=== PATIENT | female | born 1955 | race American Indian/Alaskan Native ===

== ENCOUNTER 2020-06-16 10:24 | Outpatient (CLI) | payer BC ==
[2020-06-16 11:09] LABS: ABG Base Excess 4.1 mmol/L (-2.0-3.0); ABG HCO3 28.9 mmol/L (20.0-26.0); ABG Methemoglobin 0.5 % (0.0-1.5); ABG Oxygen Saturation 96.6 % (95.0-99.0); ABG PH 7.436 pH Units (7.350-7.450)
[2020-06-16 11:13] LABS: Blood Urea Nitrogen 14 mg/dL (7-17); Calcium 9.4 mg/dL (8.4-10.2); Hemolysis Index 1
[2020-06-16 11:20] LABS: BUN/Creatinine Ratio 23
== END 2020-06-16 10:25 | disposition home or self-care (01) ==
LOC: LAB 10:24
PROVIDERS: ATTEND Internal Medicine
DX: J45.909 Unspecified asthma, uncomplicated (principal); K21.9 Gastro-esophageal reflux disease without esophagitis; I10 Essential (primary) hypertension
CPT/HCPCS: 36415; 36600; 80048; 82785; 82803

== ENCOUNTER 2021-03-04 16:08 | Observation (INO) | payer BC ==
[2021-03-04] MEDS ORDERED: ASPIRIN 325 MG TAB PO ONE (16:55)
--- NOTE | 2021-03-04 16:59 | Emergency Department Report ---
<GINETTE GREENE - Last Filed: 03/04/21 19:35> ED General Adult HPI - General Chief complaint: Chest Pain Stated complaint: CHEST PAIN/ARM NUMBNESS Time Seen by Provider: 03/04/21 16:33 - Related Data Allergies Allergy/AdvReac Type Severity Reaction Status Date / Time No Known Allergies Allergy Verified 03/04/21 16:19 ED Medical Decision Making - Lab Data Result diagrams: 03/04/21 17:06 03/04/21 17:06 ED Disposition Clinical Impression: SOB (shortness of breath), Elevated d-dimer, Slurred speech, Numbness in left leg, Left arm numbness Chest pain Qualifiers: Chest pain type: unspecified Qualified Code(s): R07.9 - Chest pain, unspecified Stenosis of carotid artery Qualifiers: Laterality: left Qualified Code(s): I65.22 - Occlusion and stenosis of left carotid artery Disposition: 02 [facility]ORT [facility] Condition: Stable Instructions: Nonspecific Chest Pain, Adult Referrals: FRANDY BECKER MD [Primary Care Provider] - 3-5 Days Print Language: PERSIAN Heart Score - HEART Score History: Slightly suspicious EKG: Non-specific Age: 45-65 Risk factors: No known risk factors Troponin: < normal limit HEART Score: 2 - EKG Read Time Time EKG Completed: 16:18 EKG Read Time: 18:16 - Critical Actions Critical Actions: 0-3 pts:0.9-1.7%risk of adverse cardiac event.Candidate for discharge <LORNE VILLALOBOS - Last Filed: 03/04/21 22:48> ED General Adult HPI - General Source: patient Mode of arrival: Ambulatory Limitations: No Limitations - History of Present Illness Initial comments: Patient is a 65-year-old female presents emergency room with complaints of bilateral chest pain that began a week ago. She states that her pain is worse with taking a deep breath. Patient states that she has associated shortness of breath. 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 she states that she has an appointment with a motor vehicles inspector next week and she is going to see Dr. chase. Patient states also for the last couple of days she has had some slurring of her speech and numbness/tingling sensation to her left arm and left leg. States that she has a history of cervical radiculopathy and has had tingling in her left arm before but states the speech slurring and left leg tingling is new. She denies any cough, vomiting, diarrhea, leg swelling, hemoptysis, vision changes, weakness, gait disturbance. Past medical history of hyperlipidemia and herniated cervical disc. No allergies to medications. States that she had a stress test approximately 20 years ago. She is a never smoker. She denies any family or personal cardiac history or history of DVT/PE. ED Review of Systems ROS: Stated complaint: CHEST PAIN/ARM NUMBNESS Other details as noted in HPI Comment: All other systems reviewed and negative ED Past Medical Hx - Past Medical History Previous Medical History?: No - Surgical History Past Surgical History?: No ED Physical Exam - General Limitations: No Limitations General appearance: alert, in no apparent distress - Head Head exam: Present: atraumatic, normocephalic - Eye Eye exam: Present: normal appearance - ENT ENT exam: Present: mucous membranes moist - Respiratory Respiratory exam: Present: normal lung sounds bilaterally. Absent: respiratory distress, wheezes, rales, rhonchi, stridor, chest wall tenderness, accessory muscle use, decreased breath sounds, prolonged expiratory - Cardiovascular Cardiovascular Exam: Present: regular rate, normal rhythm, normal heart sounds. Absent: systolic murmur, diastolic murmur, rubs, gallop - Neurological Exam Neurological exam: Present: alert, oriented X3, CN II-XII intact, normal gait. Absent: motor sensory deficit - Psychiatric Psychiatric exam: Present: normal affect, normal mood - Skin Skin exam: Present: warm, dry, intact ED Course Vital Signs 03/04/21 03/04/21 03/04/21 16:23 21:24 21:29 Temperature 98.8 F 98.2 F Pulse Rate 71 66 Respiratory 18 14 14 Rate Blood Pressure 109/62 Blood Pressure 128/79 [Left] O2 Sat by Pulse 97 100 100 Oximetry - Consultations Consultation #1: 03/04/21 21:[address] Wheeler, hospitalist who will accept and resume care of patient, will admit to hospital service, advised to consult vascular regarding 50% stenosis of left ICA 03/04/21 22:[address] Wen, vascular surgery, will consult on patient ED Medical Decision Making - Lab Data Result diagrams: 03/04/21 17:06 03/04/21 17:06 Lab Results 03/04/21 03/04/21 03/04/21 Range/Units 17:06 17:06 17:06 WBC 6.9 (4.5-11.0) K/mm3 RBC 4.33 (3.65-5.03) M/mm3 Hgb 13.6 (10.1-14.3) gm/dl Hct 39.9 (30.3-42.9) % MCV 92 (79-97) fl MCH 31 (28-32) pg MCHC 34 (30-34) % RDW 14.3 (13.2-15.2) % Plt Count 362 (140-440) K/mm3 Add Manual Diff Complete Total Counted 100 Seg Neuts % (Manual) 73.0 H (40.0-70.0) % Lymphocytes % (Manual) 23.0 (13.4-35.0) % Monocytes % (Manual) 4.0 (0.0-7.3) % Nucleated RBC % Not Reportable Seg Neutrophils # Man 5.0 (1.8-7.7) K/mm3 Band Neutrophils # 0.0 K/mm3 Lymphocytes # (Manual) 1.6 (1.2-5.4) K/mm3 Abs React Lymphs (Man) 0.0 K/mm3 Monocytes # (Manual) 0.3 (0.0-0.8) K/mm3 Eosinophils # (Manual) 0.0 (0.0-0.4) K/mm3 Basophils # (Manual) 0.0 (0.0-0.1) K/mm3 Metamyelocytes # 0.0 K/mm3 Myelocytes # 0.0 K/mm3 Promyelocytes # 0.0 K/mm3 Blast Cells # 0.0 K/mm3 WBC Morphology Not Reportable Hypersegmented Neuts Not Reportable Hyposegmented Neuts Not Reportable Hypogranular Neuts Not Reportable Smudge Cells Not Reportable Toxic Granulation Not Reportable Toxic Vacuolation Not Reportable Dohle Bodies Not Reportable Pelger-Huet Anomaly Not Reportable Yoselyn Rods Not Reportable Platelet Estimate Not Reportable Clumped Platelets Not Reportable Plt Clumps, EDTA Not Reportable Large Platelets Not Reportable Giant Platelets Not Reportable Platelet Satelliting Not Reportable Plt Morphology Comment Not Reportable RBC Morphology Normal Dimorphic RBCs Not Reportable Polychromasia Not Reportable Hypochromasia Not Reportable Poikilocytosis Not Reportable Anisocytosis Not Reportable Microcytosis Not Reportable Macrocytosis Not Reportable Spherocytes Not Reportable Pappenheimer Bodies Not Reportable Sickle Cells Not Reportable Target Cells Not Reportable Tear Drop Cells Not Reportable Ovalocytes Not Reportable Helmet Cells Not Reportable [place] Bodies Not Reportable [place] Rings Not Reportable [place] Cells Not Reportable Bite Cells Not Reportable Crenated Cell Not Reportable Elliptocytes Not Reportable Acanthocytes (Spur) Not Reportable Rouleaux Not Reportable Hemoglobin C Crystals Not Reportable Schistocytes Not Reportable Malaria parasites Not Reportable Nick Bodies Not Reportable Hem Pathologist Commnt No PT 12.6 (12.2-14.9) Sec. INR 0.89 (0.87-1.13) APTT 33.8 (24.2-36.6) Sec. D-Dimer 347.23 H (0-234) ng/mlDDU Sodium 139 (137-145) mmol/L Potassium 3.9 (3.6-5.0) mmol/L Chloride 99.2 (98-107) mmol/L Carbon Dioxide 28 (22-30) mmol/L Anion Gap 16 mmol/L BUN 11 (7-17) mg/dL Creatinine 0.6 (0.6-1.2) mg/dL Estimated GFR > 60 ml/min BUN/Creatinine Ratio 18 % Glucose 141 H (65-100) mg/dL Calcium 9.2 (8.4-10.2) mg/dL Total Bilirubin 0.50 (0.1-1.2) mg/dL AST 23 (5-40) units/L ALT 14 (7-56) units/L Alkaline Phosphatase 66 (35-129) units/L Troponin T (0.00-0.029) ng/mL Total Protein 7.4 (6.3-8.2) g/dL Albumin 4.0 (3.9-5) g/dL Albumin/Globulin Ratio 1.2 % 03/04/21 03/04/21 03/04/21 Range/Units 17:06 17:06 19:37 WBC (4.5-11.0) K/mm3 RBC (3.65-5.03) M/mm3 Hgb (10.1-14.3) gm/dl Hct (30.3-42.9) % MCV (79-97) fl MCH (28-32) pg MCHC (30-34) % RDW (13.2-15.2) % Plt Count (140-440) K/mm3 Add Manual Diff Total Counted Seg Neuts % (Manual) (40.0-70.0) % Lymphocytes % (Manual) (13.4-35.0) % Monocytes % (Manual) (0.0-7.3) % Nucleated RBC % Seg Neutrophils # Man (1.8-7.7) K/mm3 Band Neutrophils # K/mm3 Lymphocytes # (Manual) (1.2-5.4) K/mm3 Abs React Lymphs (Man) K/mm3 Monocytes # (Manual) (0.0-0.8) K/mm3 Eosinophils # (Manual) (0.0-0.4) K/mm3 Basophils # (Manual) (0.0-0.1) K/mm3 Metamyelocytes # K/mm3 Myelocytes # K/mm3 Promyelocytes # K/mm3 Blast Cells # K/mm3 WBC Morphology TNR Hypersegmented Neuts Hyposegmented Neuts Hypogranular Neuts Smudge Cells Toxic Granulation Toxic Vacuolation Dohle Bodies Pelger-Huet Anomaly Yoselyn Rods Platelet Estimate Clumped Platelets Plt Clumps, EDTA Large Platelets Giant Platelets Platelet Satelliting Plt Morphology Comment RBC Morphology Dimorphic RBCs Polychromasia Hypochromasia Poikilocytosis Anisocytosis Microcytosis Macrocytosis Spherocytes Pappenheimer Bodies Sickle Cells Target Cells Tear Drop Cells Ovalocytes Helmet Cells [place] Bodies [place] Juan Cells Bite Cells Crenated Cell Elliptocytes Acanthocytes (Spur) Rouleaux Hemoglobin C Crystals Schistocytes Malaria parasites Nick Bodies Hem Pathologist Commnt PT (12.2-14.9) Sec. INR (0.87-1.13) APTT (24.2-36.6) Sec. D-Dimer (0-234) ng/mlDDU Sodium (137-145) mmol/L Potassium (3.6-5.0) mmol/L Chloride (98-107) mmol/L Carbon Dioxide (22-30) mmol/L Anion Gap mmol/L BUN (7-17) mg/dL Creatinine (0.6-1.2) mg/dL Estimated GFR ml/min BUN/Creatinine Ratio % Glucose (65-100) mg/dL Calcium (8.4-10.2) mg/dL Total Bilirubin (0.1-1.2) mg/dL AST (5-40) units/L ALT (7-56) units/L Alkaline Phosphatase (35-129) units/L Troponin T < 0.010 < 0.010 (0.00-0.029) ng/mL Total Protein (6.3-8.2) g/dL Albumin (3.9-5) g/dL Albumin/Globulin Ratio % - EKG Data EKG shows normal: sinus rhythm, intervals, QRS complexes Rate: normal - EKG Data 03/04/21 22:43 LAD no STEMI - Radiology Data Radiology results: report reviewed Ordering Physician: SJ ZAMORA Date of Service: 03/04/21 Procedure(s): XR chest routine 2V Accession Number(s): [id number] cc: SJ ZAMORA Fluoro Time In Minutes: CHEST 2 VIEWS INDICATION / CLINICAL INFORMATION: Chest Pain. COMPARISON: None available. FINDINGS: SUPPORT DEVICES: None. HEART / MEDIASTINUM: No significant abnormality. LUNGS / PLEURA: No significant pulmonary or pleural abnormality. No pneumothorax. ADDITIONAL FINDINGS: No significant additional findings. IMPRESSION: 1. No acute findings. Signer Name: Jodee Salazar MD Signed: 03/04/2021 6:06 PM Workstation Name: [id number] Transcribed By: JR Dictated By: Jodee Salazar MD Electronically Authenticated By: Jodee Salazar MD Signed Date/Time: 03/04/211805 DD/ 05 TD/TT: Ordering Physician: GINETTE GREENE MD Date of Service: 03/04/21 Procedure(s): CT head/brain wo con Accession Number(s): [id number] cc: GINETTE GREENE MD CT head/brain wo con INDICATION: tia symptoms. TECHNIQUE: All CT scans at this location are performed using CT dose reduction for ALARA by means of automated exposure control. COMPARISON: None available. FINDINGS: There is no evidence of hemorrhage, hydrocephalus, brain edema, or mass effect/mass lesion. There is overall normal brain formation and brain volume for the patient's age. Ventricular and cisternal/sulcal size is normal for age. The included paranasal sinuses and mastoid air cells are clear. The orbits appear unremarkable. IMPRESSION: 1. No acute intracranial abnormality. Signer Name: Sreedhar Benito MD Signed: 03/04/2021 7:16 PM Workstation Name: [id number] Transcribed By: ALFONSO Dictated By: Sreedhar Benito MD Electronically Authenticated By: Sreedhar Benito MD Signed Date/Time: 03/04/211915 DD/ 14 TD/TT: Ordering Physician: SJ ZAMORA Date of Service: 03/04/21 Procedure(s): CT angio neck Accession Number(s): [id number] cc: SJ ZAMORA CTA HEAD AND NECK WITH CONTRAST HISTORY: COMPARISON: None. TECHNIQUE: All CT scans at this location are performed using CT dose reduction for ALARA by means of automated exposure control.. 3-D/MIP reformats postprocessed. Percentage stenosis is determined by direct quantitative measurements of diseased internal carotid artery diameter compared with normal distal internal carotid artery reference segments or by criteria similar to NASCET where applicable. CONTRAST: 100 ml of Isovue 370 FINDINGS: CT HEAD: BRAIN / INTRACRANIAL CONTENTS: No acute hemorrhage, mass effect, midline shift, or hydrocephalus. No appreciable acute large territorial or lacunar infarct. ORBITS: No significant abnormality of visualized orbits. SINUSES / MASTOIDS: No significant abnormality of visualized sinuses and mastoid air cells. CTA HEAD: Intracranial vertebral arteries: No significant abnormality. Basilar artery: No significant abnormality. Posterior cerebral arteries: No significant abnormality. Intracranial internal carotid arteries: There is mild plaque in both carotid siphons without significant stenosis. Anterior cerebral arteries: No significant abnormality. Middle cerebral arteries: No significant abnormality. Dural venous sinuses:Not optimally opacified. No significant abnormality. CTA NECK: Aortic arch: No significant abnormality. Cervical vertebral arteries: No significant abnormality. Common carotid arteries: No significant abnormality. Cervical internal carotid arteries: There is mixed plaque in both carotid bulbs. On the left, there is approximately 50% stenosis. On the right, there is only about 20% stenosis. Additional findings: Bilateral subcentimeter thyroid nodules do not require dedicated imaging follow-up. IMPRESSION: 1. No large vessel occlusion or flow-limiting stenosis intracranially. 2. Borderline flow-limiting stenosis of the proximal left cervical ICA due to mixed plaque. Signer Name: Sreedhar Benito MD Signed: 03/04/2021 7:27 PM Workstation Name: [id number] Transcribed By: ALFONSO Dictated By: Sreedhar Benito MD Electronically Authenticated By: Sreedhar Benito MD Signed Date/Time: 03/04/211926 DD/ 24 TD/TT: Ordering Physician: GINETTE GREENE MD Date of Service: 03/04/21 Procedure(s): NM perfusion only lung scan Accession Number(s): [id number] cc: GINETTE GREENE MD NUCLEAR MEDICINE PERFUSION LUNG SCAN INDICATION / CLINICAL INFORMATION: Pleuritic chest pain. TECHNIQUE: 5.2 mCi of Tc-99m MAA were given by IV. COMPARISON: Chest radiograph dated 03/04/2021. FINDINGS: PERFUSION: No significant perfusion defects.. There is homogeneous distribution of the radiopharmaceutical throughout both lungs in a normal distribution. ADDITIONAL FINDINGS: None. IMPRESSION: 1. Low probability for pulmonary embolism. Signer Name: Jodee Salazar MD Signed: 03/04/2021 9:25 PM Workstation Name: [id number] Transcribed By: Dictated By: Jodee Salazar MD Electronically Authenticated By: Jodee Salazar MD Signed Date/Time: 03/04/212124 DD/ 23 TD/TT: - Medical Decision Making Patient is a 65-year-old female presents emergency room with complaints of bilateral chest pain that began a week ago. She states that her pain is worse with taking a deep breath. Patient states that she has associated shortness of breath. 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 she states that she has an appointment with a motor vehicles inspector next week and she is going to see Dr. chase. Patient states also for the last couple of days she has had some slurring of her speech and numbness/tingling sensation to her left arm and left leg. States that she has a history of cervical radiculopathy and has had tingling in her left arm before but states the speech slurring and left leg tingling is new. She denies any cough, vomiting, diarrhea, leg swelling, hemoptysis, vision changes, weakness, gait disturbance. Past medical history of hyperlipidemia and herniated cervical disc. No allergies to medications. States that she had a stress test approximately 20 years ago. She is a never smoker. She denies any family or personal cardiac history or history of DVT/PE. Vitals are normal. EKG with left axis deviation, no STEMI. Labs with elevated D-dimer, otherwise stable. Patient has no focal neuro deficits on exam. Patient evaluated by Dr. Greene, ER attending who recommended admission for CP and stroke/TIA work-up and advised to order CT angio head and neck. CXR: 1. No acute findings. CT head without contrast: 1. No acute intracranial abnormality. CT angio head and neck: 1. No large vessel occlusion or flow-limiting stenosis intracranially. 2. Borderline flow-limiting stenosis of the proximal left cervical ICA due to mixed plaque. V/Q scan: 1. Low probability for pulmonary embolism. Patient seen by tele neurology, please see their note for recommendations. Dr. Greene, ER attending recommends admission.Discussed case with Dr. Wheeler, hospitalist who will accept and resume care of patient, will admit to hospital service, advised to consult vascular regarding 50% stenosis of left ICA. Spoke to Dr. Wen, vascular surgery, will consult on patient. Discussed findings with patient who is agreeable with admission. Critical care attestation.: If time is entered above; I have spent that time in minutes in the direct care of this critically ill patient, excluding procedure time. ED Disposition Is pt being admited?: Yes Does the pt Need Aspirin: Yes Time of Disposition: 22:19 Heart Score - HEART Score History: Slightly suspicious EKG: Non-specific Age: 45-65 Risk factors: No known risk factors Troponin: < normal limit HEART Score: 2
[2021-03-04 17:37] LABS: Hematocrit 39.9 % (30.3-42.9); Hemoglobin 13.6 gm/dl (10.1-14.3); Mean Corpuscular HGB Conc 34 % (30-34); Mean Corpuscular Volume 92 fl (79-97); Platelet Count 362 K/mm3 (140-440); Red Blood Count 4.33 M/mm3 (3.65-5.03); Red Cell Distribution Width 14.3 % (13.2-15.2)
[2021-03-04 17:52] LABS: Alanine Aminotransferase 14 units/L (7-56); Blood Urea Nitrogen 11 mg/dL (7-17); Calcium 9.2 mg/dL (8.4-10.2); Hemolysis Index 5
[2021-03-04 17:54] LABS: BUN/Creatinine Ratio 18
[2021-03-04 17:59] LABS: INR 0.89 (0.87-1.13)
[2021-03-04 18:01] LABS: Partial Thromboplastin Time 33.8 Sec. (24.2-36.6)
--- NOTE | 2021-03-04 18:10 | XRay Report ---
CHEST 2 VIEWS INDICATION / CLINICAL INFORMATION: Chest Pain. COMPARISON: None available. FINDINGS: SUPPORT DEVICES: None. HEART / MEDIASTINUM: No significant abnormality. LUNGS / PLEURA: No significant pulmonary or pleural abnormality. No pneumothorax. ADDITIONAL FINDINGS: No significant additional findings. IMPRESSION: 1. No acute findings. Signer Name: Jodee Salazar MD Signed: 03/04/2021 6:06 PM Workstation Name: [id number]
--- NOTE | 2021-03-04 18:18 | Event Note ---
Date of service: 03/04/21 Face to Face: For this encounter I have reviewed the PA/RIPSAW OPERATOR documentation, treatment plan, medical decision making, and I had face to face time with this patient. The patient was evaluated in the emergency department for symptoms described in the history of present illness. He/she was evaluated in the context of the global COVID-19 pandemic, which necessitated consideration that the patient might be at risk for infection with the virus that causes COVID-19. Institutional protocols and algorithms that pertain to the evaluation of patients at risk for COVID-19 are in a state of rapid change based on information released by regulatory bodies including the CDC and federal and state organizations. These policies and algorithms were followed during the patient's care in the emergency department. Please note that these policies, procedures and recommendations changed on a rapid basis. Pulmonology: Dr. Whittaker The patient is a 65-year-old female, who presents to the ER today with a complaint of intermittent central, right-sided and left-sided chest pain. The pain is pleuritic. The patient denies travel, surgery, immobilization, DVT and pulmonary embolism risk factors. The pain has been going on for about a week or so. She has been taking aspirin. No recent cardiac risk ratification that she is aware of. The patient also endorses a known history of cervical radiculopathy. She also complains of left posterior arm numbness, which is consistent with her prior episodes of left posterior arm numbness, associated with her cervical radiculopathy. However, over the past week or so, she does endorse intermittent "jumbled speech", and intermittent numbness and dysesthesia, over her left anterior distal lower extremity. Currently, she has a GCS of 15, with NIH score of 0. She is also seen to be on a cellular phone. Her EKG is abnormal, and interpreted at 16: 18 EKG shows a sinus rhythm, 69 bpm, with a left axis deviation, left anterior fascicular block, unremarkable intervals and low voltage in the septal leads. Given complaint of neurologic symptoms with chest pain, obtain CT scan of the brain, and CT angiogram head and neck, to evaluate for large vessel occlusion, dissection, or thrombosis. Patient is also found to have elevated D-dimer, and therefore, given pleuritic pain, left axis deviation, nuclear medicine study is ordered. The patient's pain will be treated. Physician assistant professor of dietetics also discussed with neurology for further recommendations. We have recommended admission to the medical service for chest pain, and TIA symptoms. I discussed this with the patient. She is agreeable to this plan of care. All questions answered. Imaging studies pending at this time. CT scan brain, CT angiogram head and neck negative for large vessel occlusion or significant lesions. Nuclear medicine study is low probability for pulmonary embolism. Discussed CT angiogram findings with neurology on-call, Dr.K Maradiaga. Advises medical management, no indication for emergent surgical intervention. Hospital physician, Dr. Wheeler to admit to IMS In addition, repeat EKG unremarkable. Unchanged from prior. Vital Signs 03/04/21 16:23 Temperature 98.8 F Pulse Rate 71 Respiratory 18 Rate Blood Pressure 109/62 O2 Sat by Pulse 97 Oximetry Lab Results 03/04/21 03/04/21 03/04/21 Range/Units 17:06 17:06 17:06 WBC 6.9 (4.5-11.0) K/mm3 RBC 4.33 (3.65-5.03) M/mm3 Hgb 13.6 (10.1-14.3) gm/dl Hct 39.9 (30.3-42.9) % MCV 92 (79-97) fl MCH 31 (28-32) pg MCHC 34 (30-34) % RDW 14.3 (13.2-15.2) % Plt Count 362 (140-440) K/mm3 WBC Morphology PT 12.6 (12.2-14.9) Sec. INR 0.89 (0.87-1.13) APTT 33.8 (24.2-36.6) Sec. D-Dimer 347.23 H (0-234) ng/mlDDU Sodium 139 (137-145) mmol/L Potassium 3.9 (3.6-5.0) mmol/L Chloride 99.2 (98-107) mmol/L Carbon Dioxide 28 (22-30) mmol/L Anion Gap 16 mmol/L BUN 11 (7-17) mg/dL Creatinine 0.6 (0.6-1.2) mg/dL Estimated GFR > 60 ml/min BUN/Creatinine Ratio 18 % Glucose 141 H (65-100) mg/dL Calcium 9.2 (8.4-10.2) mg/dL Total Bilirubin 0.50 (0.1-1.2) mg/dL AST 23 (5-40) units/L ALT 14 (7-56) units/L Alkaline Phosphatase 66 (35-129) units/L Troponin T (0.00-0.029) ng/mL Total Protein 7.4 (6.3-8.2) g/dL Albumin 4.0 (3.9-5) g/dL Albumin/Globulin Ratio 1.2 % 03/04/21 03/04/21 Range/Units 17:06 17:06 WBC (4.5-11.0) K/mm3 RBC (3.65-5.03) M/mm3 Hgb (10.1-14.3) gm/dl Hct (30.3-42.9) % MCV (79-97) fl MCH (28-32) pg MCHC (30-34) % RDW (13.2-15.2) % Plt Count (140-440) K/mm3 WBC Morphology TNR PT (12.2-14.9) Sec. INR (0.87-1.13) APTT (24.2-36.6) Sec. D-Dimer (0-234) ng/mlDDU Sodium (137-145) mmol/L Potassium (3.6-5.0) mmol/L Chloride (98-107) mmol/L Carbon Dioxide (22-30) mmol/L Anion Gap mmol/L BUN (7-17) mg/dL Creatinine (0.6-1.2) mg/dL Estimated GFR ml/min BUN/Creatinine Ratio % Glucose (65-100) mg/dL Calcium (8.4-10.2) mg/dL Total Bilirubin (0.1-1.2) mg/dL AST (5-40) units/L ALT (7-56) units/L Alkaline Phosphatase (35-129) units/L Troponin T < 0.010 (0.00-0.029) ng/mL Total Protein (6.3-8.2) g/dL Albumin (3.9-5) g/dL Albumin/Globulin Ratio % CHEST 2 VIEWS INDICATION / CLINICAL INFORMATION: Chest Pain. COMPARISON: None available. FINDINGS: SUPPORT DEVICES: None. HEART / MEDIASTINUM: No significant abnormality. LUNGS / PLEURA: No significant pulmonary or pleural abnormality. No pneumothorax. ADDITIONAL FINDINGS: No significant additional findings. IMPRESSION: 1. No acute findings. Signer Name: Jodee Salazar MD Signed: 03/04/2021 5:06 PM Workstation Name: [id number] CTA HEAD AND NECK WITH CONTRAST HISTORY: COMPARISON: None. TECHNIQUE: All CT scans at this location are performed using CT dose reduction for ALARA by means of automated exposure control.. 3-D/MIP reformats postprocessed. Percentage stenosis is determined by direct quantitative measurements of diseased internal carotid artery diameter compared with normal distal internal carotid artery reference segments or by criteria similar to NASCET where applicable. CONTRAST: 100 ml of Isovue 370 FINDINGS: CT HEAD: BRAIN / INTRACRANIAL CONTENTS: No acute hemorrhage, mass effect, midline shift, or hydrocephalus. No appreciable acute large territorial or lacunar infarct. ORBITS: No significant abnormality of visualized orbits. SINUSES / MASTOIDS: No significant abnormality of visualized sinuses and mastoid air cells. CTA HEAD: Intracranial vertebral arteries: No significant abnormality. Basilar artery: No significant ab normality. Posterior cerebral arteries: No significant abnormality. Intracranial internal carotid arteries: There is mild plaque in both carotid siphons without significant stenosis. Anterior cerebral arteries: No significant abnormality. Middle cerebral arteries: No significant abnormality. Dural venous sinuses:Not optimally opacified. No significant abnormality. CTA NECK: Aortic arch: No significant abnormality. Cervical vertebral arteries: No significant abnormality. Common carotid arteries: No significant abnormality. Cervical internal carotid arteries: There is mixed plaque in both carotid bulbs. On the left, there is approximately 50% stenosis. On the right, there is only about 20% stenosis. Additional findings: Bilateral subcentimeter thyroid nodules do not require dedicated imaging follow-up. IMPRESSION: 1. No large vessel occlusion or flow-limiting stenosis intracranially. 2. Borderline flow-limiting stenosis of the proximal left cervical ICA due to mixed plaque. Signer Name: Sreedhar Benito MD Signed: 03/04/2021 6:27 PM Workstation Name: [id number] CTA HEAD AND NECK WITH CONTRAST HISTORY: COMPARISON: None. TECHNIQUE: All CT scans at this location are performed using CT dose reduction for ALARA by means of automated exposure control.. 3-D/MIP reformats postprocessed. Percentage stenosis is determined by direct quantitative measurements of diseased internal carotid artery diameter compared with normal distal internal carotid artery reference segments or by criteria similar to NASCET where applicable. CONTRAST: 100 ml of Isovue 370 FINDINGS: CT HEAD: BRAIN / INTRACRANIAL CONTENTS: No acute hemorrhage, mass effect, midline shift, or hydrocephalus. No appreciable acute large territorial or lacunar infarct. ORBITS: No significant abnormality of visualized orbits. SINUSES / MASTOIDS: No significant abnormality of visualized sinuses and mastoid air cells. CTA HEAD: Intracranial vertebral arteries: No significant abnormality. Basilar artery: No significant abnormality. Posterior cerebral arteries: No significant abnormality. Intracranial internal carotid arteries: There is mild plaque in both carotid siphons without significant stenosis. Anterior cerebral arteries: No significant abnormality. Middle cerebral arteries: No significant abnormality. Dural venous sinuses:Not optimally opacified. No significant abnormality. CTA NECK: Aortic arch: No significant abnormality. Cervical vertebral arteries: No significant abnormality. Common carotid arteries: No significant abnormality. Cervical internal carotid arteries: There is mixed plaque in both carotid bulbs. On the left, there is approximately 50% stenosis. On the right, there is only about 20% stenosis. Additional findings: Bilateral subcentimeter thyroid nodules do not require dedicated imaging follow-up. IMPRESSION: 1. No large vessel occlusion or flow-limiting stenosis intracranially. 2. Borderline flow-limiting stenosis of the proximal left cervical ICA due to mixed plaque. Signer Name: Sreedhar Benito MD Signed: 03/04/2021 6:27 PM Workstation Name: [id number] CHEST 2 VIEWS INDICATION / CLINICAL INFORMATION: Chest Pain. COMPARISON: None available. FINDINGS: SUPPORT DEVICES: None. HEART / MEDIASTINUM: No significant abnormality. LUNGS / PLEURA: No significant pulmonary or pleural abnormality. No pneumothorax. ADDITIONAL FINDINGS: No significant additional fi ndings. IMPRESSION: 1. No acute findings. Signer Name: Jodee Salazar MD Signed: 03/04/2021 5:06 PM Workstation Name: [id number] CT head/brain wo con INDICATION: tia symptoms. TECHNIQUE: All CT scans at this location are performed using CT dose reduction for ALARA by means of automated exposure control. COMPARISON: None available. FINDINGS: There is no evidence of hemorrhage, hydrocephalus, brain edema, or mass effect/mass lesion. There is overall normal brain formation and brain volume for the patient's age. Ventricular and cisternal/sulcal size is normal for age. The included paranasal sinuses and mastoid air cells are clear. The orbits appear unremarkable. IMPRESSION: 1. No acute intracranial abnormality. Signer Name: Sreedhar Benito MD Signed: 03/04/2021 6:16 PM NUCLEAR MEDICINE PERFUSION LUNG SCAN INDICATION / CLINICAL INFORMATION: Pleuritic chest pain. TECHNIQUE: 5.2 mCi of Tc-99m MAA were given by IV. COMPARISON: Chest radiograph dated 03/04/2021. FINDINGS: PERFUSION: No significant perfusion defects.. There is homogeneous distribution of the radiopharmaceutical throughout both lungs in a normal distribution. ADDITIONAL FINDINGS: None. IMPRESSION: 1. Low probability for pulmonary embolism. Signer Name: Jodee Salazar MD Signed: 03/04/2021 8:25 PM Workstation Name: [id number]
[2021-03-04 18:37] LABS: Total Cells Counted 100
[2021-03-04 18:38] LABS: RBC Morphology Normal
--- NOTE | 2021-03-04 19:20 | Cat Scan Report ---
CT head/brain wo con INDICATION: tia symptoms. TECHNIQUE: All CT scans at this location are performed using CT dose reduction for ALARA by means of automated e xposure control. COMPARISON: None available. FINDINGS: There is no evidence of hemorrhage, hydrocephalus, brain edema, or mass effect/mass lesion. There is overall normal brain formation and brain volume for the patient's age. Ventricular and cisternal/sulc al size is normal for age. The included paranasal sinuses and mastoid air cells are clear. The orbits appear unremarkable. IMPRESSION: 1. No acute intracranial abnormality. Signer Name: Sreedhar Benito MD Signed: 03/04/2021 7:16 PM Workstation Name: [id number]
--- NOTE | 2021-03-04 19:32 | Cat Scan Report ---
CTA HEAD AND NECK WITH CONTRAST HISTORY: COMPARISON: None. TECHNIQUE: All CT scans at this location are performed using CT dose reduction for ALARA by means of automated exposure control.. 3-D/MIP reformats postprocessed. Percentage stenosis is determined by d irect quantitative measurements of diseased internal carotid artery diameter compared with normal dis francis internal carotid artery reference segments or by criteria similar to NASCET where applicable. CONTRAST: 100 ml of Isovue 370 FINDINGS: CT HEAD: BRAIN / INTRACRANIAL CONTENTS: No acute hemorrhage, mass effect, midline shift, or hydrocephalus. No appreciable acute large territorial or lacunar infarct. ORBITS: No significant abnormality of visualized orbits. SINUSES / MASTOIDS: No significant abnormality of visualized sinuses and mastoid air cells. CTA HEAD: Intracranial vertebral arteries: No significant abnormality. Basilar artery: No significant abnormality. Posterior cerebral arteries: No significant abnormality. Intracranial internal carotid arteries: There is mild plaque in both carotid siphons without signific ant stenosis. Anterior cerebral arteries: No significant abnormality. Middle cerebral arteries: No significant abnormality. Dural venous sinuses:Not optimally opacified. No significant abnormality. CTA NECK: Aortic arch: No significant abnormality. Cervical vertebral arteries: No significant abnormality. Common carotid arteries: No significant abnormality. Cervical internal carotid arteries: There is mixed plaque in both carotid bulbs. On the left, there i s approximately 50% stenosis. On the right, there is only about 20% stenosis. Additional findings: Bilateral subcentimeter thyroid nodules do not require dedicated imaging follow- up. IMPRESSION: 1. No large vessel occlusion or flow-limiting stenosis intracranially. 2. Borderline flow-limiting stenosis of the proximal left cervical ICA due to mixed plaque. Signer Name: Sreedhar Benito MD Signed: 03/04/2021 7:27 PM Workstation Name: [id number]
--- NOTE | 2021-03-04 21:29 | Nuclear Medicine Report ---
NUCLEAR MEDICINE PERFUSION LUNG SCAN INDICATION / CLINICAL INFORMATION: Pleuritic chest pain. TECHNIQUE: 5.2 mCi of Tc-99m MAA were given by IV. COMPARISON: Chest radiograph dated 03/04/2021. FINDINGS: PERFUSION: No significant perfusion defects.. There is homogeneous distribution of the radiopharmaceu tical throughout both lungs in a normal distribution. ADDITIONAL FINDINGS: None. IMPRESSION: 1. Low probability for pulmonary embolism. Signer Name: Jodee Salazar MD Signed: 03/04/2021 9:25 PM Workstation Name: [id number]
--- NOTE | 2021-03-04 22:19 | Emergency Department Report ---
Blank Doc - Documentation Documentation: [facility] Consult Note # Demographics Consult Type: Acute Stroke Level 1 (0-4.5 hrs) Patient Location: Emergency Room First Name: elias Last Name: ayaan Date of : 1955 Age: 65 Facility: [facility] Time of Initial Page ( Time): 03/04/2021, 18:30 Time of Return Call ( Time): 03/04/2021, 18:30 # HPI History: 65 yo woman hx of HLD, herniated disc presenting with days of jumbled speech and leg and arm numbness in setting of chest pain . Her symtoms have mostly resolved, but notes some coolness in her legs. She feels soreness in her chest. # Scores Time of exam and NIHSS ( Time): 03/04/2021, 22:01 Level of Consciousness 1a: [0] = Alert; keenly responsive LOC Questions 1b: [0] = Answers both questions correctly LOC Commands 1c: [0] = Performs both tasks correctly Best Gaze 2: [0] = Normal Visual 3: [0] = No visual loss Facial Palsy 4: [0] = Normal symmetrical movements Motor Arm Left 5a: [0] = No drift Motor Arm Right 5b: [0] = No drift Motor Leg Left 6a: [0] = No drift Motor Leg Right 6b: [0] = No drift Limb Ataxia 7: [0] = Absent Sensory 8: [0] = Normal Best Language 9: [0] = No aphasia Dysarthria 10: [0] = Normal Extinction and Inattention 11: [0] = No abnormality NIHSS Total: 0 # Data Head CT: no bleed CTA Head: no large vessel occlusion CTA Neck: patent vessels # Assessment Impression: resolved jumbled speech and numbness do not suspect neurologic process. # Plan Thrombolytic/Intervention: NOT IV Thrombolysis or IA Intervention candidate Thrombolytic Exclusion (< 3 hour window): NIHSS = 0 Intraarterial Exclusion: other NIHSS is zero Target Blood Pressure: SBP < 220 Labs: CBC comprehensive metabolic panel lipid panel TSH ua Other: If patient has any neurological deterioration please call me back immediately I have discussed my recommendations with the referring provider Additional Recommendations: if back to baseline, can consider DC home from neurology perspective. # Logistics Telemedicine: Interactive 2 way audio and visual telecommunication technology was utilized during this visit
[2021-03-04] MEDS ORDERED: NITROGLYCERIN 0.4 MG TAB SUBL SL ONE (23:08)
[2021-03-04] MEDS ORDERED: MORPHINE 4 MG/1 ML INJ IV ONE (23:08)
[2021-03-04] MEDS ORDERED: ACETAMINOPHEN 325 MG TAB PO PRN (23:13)
[2021-03-04] MEDS ORDERED: traMADol 50 MG TAB PO PRN (23:13)
[2021-03-04] MEDS ORDERED: NITROGLYCERIN 0.4 MG TAB SUBL SL PRN (23:13)
[2021-03-04] MEDS ORDERED: SODIUM CHLORIDE 0.9% 1000 ML 1,000 ML IV SCH (23:15)
--- NOTE | 2021-03-04 23:27 | History and Physical Report ---
History of Present Illness Date of examination: 03/04/21 Date of admission: 03/04/21 Chief complaint: Chest pain History of present illness: 65-year-old female past medical history of hyperlipidemia and herniated cervical disc was brought to the emergency room because of bilateral chest pain that began a week ago. She states that her pain is worse with taking a deep breath. Patient states that she has associated shortness of breath. She states that she went to Dr. 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 she states that she has an appointment with a insole tack puller hand next week and she is going to see Dr. chase. Patient states also for the last couple of days she has had some slurring of her speech and numbness/tingling sensation to her left arm and left leg. States that she has a history of cervical radiculopathy and has had tingling in her left arm before but states the speech slurring and left leg tingling is new. She denies any cough, vomiting, diarrhea, leg swelling, hemoptysis, vision changes, weakness, gait disturbance. Patient had a stress test approximately 20 years ago. She is a never smoker. She denies any family or personal cardiac history or history of DVT/PE. Vitals are normal. EKG with left axis deviation, no STEMI. Labs with elevated D- dimer, otherwise stable. Patient has no focal neuro deficits on exam. admission for CP and stroke/TIA work-up and advised to order CT angio head and neck. CXR: 1. No acute findings. CT head without contrast: 1. No acute intracranial abnormality. CT angio head and neck: 1. No large vessel occlusion or flow- limiting stenosis intracranially. 2. Borderline flow-limiting stenosis of the proximal left cervical ICA due to mixed plaque. V/Q scan: 1. Low probability for pulmonary embolism. Patient seen by tele neurology, consult vascular regarding 50% stenosis of left ICA. Spoke to Dr. Wen, vascular surgery, will consult on patient Past History Past Medical History: hyperlipidemia, other (Herniated cervical disc) Medications and Allergies Allergies Allergy/AdvReac Type Severity Reaction Status Date / Time No Known Allergies Allergy Verified 03/04/21 16:19 Review of Systems All systems: negative Cardiovascular: chest pain Neurological: numbness, tingling, change in speech Exam - Constitutional Vitals: Temp Pulse Resp BP Pulse Ox 98.2 F 65 16 121/66 98 03/04/21 21:24 03/04/21 22:46 03/04/21 23:15 03/04/21 22:46 03/04/21 22:46 General appearance: Present: no acute distress, well-nourished - EENT Eyes: Present: PERRL ENT: hearing intact, clear oral mucosa - Neck Neck: Present: supple, normal ROM - Respiratory Respiratory effort: normal Respiratory: bilateral: CTA - Cardiovascular Heart Sounds: Present: S1 & S2. Absent: rub, click - Extremities Extremities: pulses symmetrical, No edema Peripheral Pulses: within normal limits - Abdominal General gastrointestinal: Present: soft, non-tender, non-distended, normal bowel sounds Female genitourinary: Present: normal - Integumentary Integumentary: Present: clear, warm, dry - Musculoskeletal Musculoskeletal: gait normal, strength equal bilaterally - Psychiatric Psychiatric: appropriate mood/affect, intact judgment & insight - Neurologic Neurologic: CNII-XII intact, other (Complaint of numbness and tingling of the left lower extremity) HEART Score - HEART Score EKG: Non-specific Age: 45-65 Risk factors: No known risk factors Troponin: Troponin T < 0.010 ng/mL (0.00-0.029) 03/04/21 19:37 Troponin: < normal limit - Critical Actions Critical Actions: 0-3 pts:0.9-1.7%risk of adverse cardiac event.Candidate for discharge Results - Labs CBC & Chem 7: 03/04/21 17:06 03/04/21 17:06 Labs: Laboratory Last Values WBC 6.9 K/mm3 (4.5-11.0) 03/04/21 17:06 RBC 4.33 M/mm3 (3.65-5.03) 03/04/21 17:06 Hgb 13.6 gm/dl (10.1-14.3) 03/04/21 17:06 Hct 39.9 % (30.3-42.9) 03/04/21 17:06 MCV 92 fl (79-97) 03/04/21 17:06 MCH 31 pg (28-32) 03/04/21 17:06 MCHC 34 % (30-34) 03/04/21 17:06 RDW 14.3 % (13.2-15.2) 03/04/21 17:06 Plt Count 362 K/mm3 (140-440) 03/04/21 17:06 Add Manual Diff Complete 03/04/21 17:06 Total Counted 100 03/04/21 17:06 Seg Neuts % (Manual) 73.0 % (40.0-70.0) H 03/04/21 17:06 Lymphocytes % (Manual) 23.0 % (13.4-35.0) 03/04/21 17:06 Monocytes % (Manual) 4.0 % (0.0-7.3) 03/04/21 17:06 Nucleated RBC % Not Reportable 03/04/21 17:06 Seg Neutrophils # Man 5.0 K/mm3 (1.8-7.7) 03/04/21 17:06 Band Neutrophils # 0.0 K/mm3 03/04/21 17:06 Lymphocytes # (Manual) 1.6 K/mm3 (1.2-5.4) 03/04/21 17:06 Abs React Lymphs (Man) 0.0 K/mm3 03/04/21 17:06 Monocytes # (Manual) 0.3 K/mm3 (0.0-0.8) 03/04/21 17:06 Eosinophils # (Manual) 0.0 K/mm3 (0.0-0.4) 03/04/21 17:06 Basophils # (Manual) 0.0 K/mm3 (0.0-0.1) 03/04/21 17:06 Metamyelocytes # 0.0 K/mm3 03/04/21 17:06 Myelocytes # 0.0 K/mm3 03/04/21 17:06 Promyelocytes # 0.0 K/mm3 03/04/21 17:06 Blast Cells # 0.0 K/mm3 03/04/21 17:06 WBC Morphology Not Reportable 03/04/21 17:06 WBC Morphology TNR 03/04/21 17:06 Hypersegmented Neuts Not Reportable 03/04/21 17:06 Hyposegmented Neuts Not Reportable 03/04/21 17:06 Hypogranular Neuts Not Reportable 03/04/21 17:06 Smudge Cells Not Reportable 03/04/21 17:06 Toxic Granulation Not Reportable 03/04/21 17:06 Toxic Vacuolation Not Reportable 03/04/21 17:06 Dohle Bodies Not Reportable 03/04/21 17:06 Pelger-Huet Anomaly Not Reportable 03/04/21 17:06 Yoselyn Rods Not Reportable 03/04/21 17:06 Platelet Estimate Not Reportable 03/04/21 17:06 Clumped Platelets Not Reportable 03/04/21 17:06 Plt Clumps, EDTA Not Reportable 03/04/21 17:06 Large Platelets Not Reportable 03/04/21 17:06 Giant Platelets Not Reportable 03/04/21 17:06 Platelet Satelliting Not Reportable 03/04/21 17:06 Plt Morphology Comment Not Reportable 03/04/21 17:06 RBC Morphology Normal 03/04/21 17:06 Dimorphic RBCs Not Reportable 03/04/21 17:06 Polychromasia Not Reportable 03/04/21 17:06 Hypochromasia Not Reportable 03/04/21 17:06 Poikilocytosis Not Reportable 03/04/21 17:06 Anisocytosis Not Reportable 03/04/21 17:06 Microcytosis Not Reportable 03/04/21 17:06 Macrocytosis Not Reportable 03/04/21 17:06 Spherocytes Not Reportable 03/04/21 17:06 Pappenheimer Bodies Not Reportable 03/04/21 17:06 Sickle Cells Not Reportable 03/04/21 17:06 Target Cells Not Reportable 03/04/21 17:06 Tear Drop Cells Not Reportable 03/04/21 17:06 Ovalocytes Not Reportable 03/04/21 17:06 Helmet Cells Not Reportable 03/04/21 17:06 [place] Bodies Not Reportable 03/04/21 17:06 [place] Rings Not Reportable 03/04/21 17:06 Juan Cells Not Reportable 03/04/21 17:06 Bite Cells Not Reportable 03/04/21 17:06 Crenated Cell Not Reportable 03/04/21 17:06 Elliptocytes Not Reportable 03/04/21 17:06 Acanthocytes (Spur) Not Reportable 03/04/21 17:06 Rouleaux Not Reportable 03/04/21 17:06 Hemoglobin C Crystals Not Reportable 03/04/21 17:06 Schistocytes Not Reportable 03/04/21 17:06 Malaria parasites Not Reportable 03/04/21 17:06 Nick Bodies Not Reportable 03/04/21 17:06 Hem Pathologist Commnt No 03/04/21 17:06 PT 12.6 Sec. (12.2-14.9) 03/04/21 17:06 INR 0.89 (0.87-1.13) 03/04/21 17:06 APTT 33.8 Sec. (24.2-36.6) 03/04/21 17:06 D-Dimer 347.23 ng/mlDDU (0-234) H 03/04/21 17:06 Sodium 139 mmol/L (137-145) 03/04/21 17:06 Potassium 3.9 mmol/L (3.6-5.0) 03/04/21 17:06 Chloride 99.2 mmol/L (98-107) 03/04/21 17:06 Carbon Dioxide 28 mmol/L (22-30) 03/04/21 17:06 Anion Gap 16 mmol/L 03/04/21 17:06 BUN 11 mg/dL (7-17) 03/04/21 17:06 Creatinine 0.6 mg/dL (0.6-1.2) 03/04/21 17:06 Estimated GFR > 60 ml/min 03/04/21 17:06 BUN/Creatinine Ratio 18 % 03/04/21 17:06 Glucose 141 mg/dL (65-100) H 03/04/21 17:06 Calcium 9.2 mg/dL (8.4-10.2) 03/04/21 17:06 Total Bilirubin 0.50 mg/dL (0.1-1.2) 03/04/21 17:06 AST 23 units/L (5-40) 03/04/21 17:06 ALT 14 units/L (7-56) 03/04/21 17:06 Alkaline Phosphatase 66 units/L (35-129) 03/04/21 17:06 Troponin T < 0.010 ng/mL (0.00-0.029) 03/04/21 19:37 Total Protein 7.4 g/dL (6.3-8.2) 03/04/21 17:06 Albumin 4.0 g/dL (3.9-5) 03/04/21 17:06 Albumin/Globulin Ratio 1.2 % 03/04/21 17:06 - Imaging and Cardiology CT Scan - head: report reviewed Assessment and Plan VTE prophylaxis?: Chemical Plan of care discussed with patient/family: Yes - Patient Problems (1) Acute coronary syndrome Current Visit: Yes Status: Acute Plan to address problem: Admit the patient to the medical floor. Aspirin 325 mg p.o. daily. Lipitor 80 mg p.o. daily. We will do the serial cardiac enzymes. We will also do echocardiogram and consult cardiology for evaluation (2) Numbness in left leg Current Visit: Yes Status: Acute Plan to address problem: Aspirin 325 mg p.o. daily. Lipitor 80 mg p.o. daily. Will consult PT OT any speech evaluation. We will do a MRI of the brain and MRA of the brain and neck with and without contrast. Echocardiogram and neurology consult (3) Slurred speech Current Visit: Yes Status: Acute Plan to address problem: Aspirin 325 mg p.o. daily. Lipitor 80 mg p.o. daily. Will consult PT OT any speech evaluation. We will do a MRI of the brain and MRA of the brain and neck with and without contrast. Echocardiogram and neurology consult (4) Hyperlipidemia Current Visit: Yes Status: Acute Plan to address problem: Lipitor 80 mg p.o. daily. Which recheck the lipid panel in the morning. We will continue the home medication (5) SOB (shortness of breath) Current Visit: Yes Status: Acute Plan to address problem: Oxygen via nasal cannula 3 to per minute DuoNeb by nebulizer every 4 hours. Albuterol via nebulizer every 4 hours as needed (6) Stenosis of carotid artery Current Visit: Yes Status: Acute Qualifiers: Laterality: left Qualified Code(s): I65.22 - Occlusion and stenosis of left carotid artery Plan to address problem: Aspirin 325 mg p.o. daily Lipitor 80 mg p.o. daily we will consult vascular surgeon for evaluation and treatment (7) DVT prophylaxis Current Visit: Yes Status: Acute Plan to address problem: Heparin 5000 units subcu every 12 hours for DVT prophylaxis. Protonix 40 mg p.o. daily for GI prophylaxis. Patient is a full code
--- NOTE | 2021-03-04 23:46 | Event Note ---
Date: 03/04/21 65 year old female who presents with TIA and has possible left 50% ICA stenosis. I reviewed the CT scan and I suspect it is less than 50% stenosis. Ordered carotid doppler for evaluation. Recommend medical therapy (statin, antiplatelet medication, HTN management, DM management) for now. More recommendations with carotid ultrasound.
[2021-03-04 23:58] LABS: Basophils # (Auto) 0.1 K/mm3 (0.0-0.1); Basophils % (Auto) 0.7 % (0.0-1.8); Eosinophils # (Auto) 0.1 K/mm3 (0.0-0.4); Eosinophils % (Auto) 1.4 % (0.0-4.3); Hematocrit 39.3 % (30.3-42.9); Hemoglobin 13.3 gm/dl (10.1-14.3); Lymphocytes # (Auto) 2.1 K/mm3 (1.2-5.4); Lymphocytes % (Auto) 26.8 % (13.4-35.0); Mean Corpuscular HGB Conc 34 % (30-34); Mean Corpuscular Volume 93 fl (79-97); Monocytes # (Auto) 0.6 K/mm3 (0.0-0.8); Monocytes % (Auto) 8.1 % (0.0-7.3); Platelet Count 329 K/mm3 (140-440); Red Blood Count 4.25 M/mm3 (3.65-5.03); Red Cell Distribution Width 14.2 % (13.2-15.2)
[2021-03-05 00:15] LABS: Blood Urea Nitrogen 9 mg/dL (7-17); Calcium 9.1 mg/dL (8.4-10.2); Hemolysis Index 9
[2021-03-05 00:24] LABS: BUN/Creatinine Ratio 15
[2021-03-05 00:56] LABS: Chol/HDL Ratio 2.12 %
[2021-03-05 05:19] LABS: Bilirubin,Urine NEG (Negative); Blood,Urine SM (Negative); Color,Urine Yellow (Yellow); Mucus,Urine FEW /HPF; Protein,Urine <15 mg/dL mg/dL (Negative); Urobilinogen,Urine < 2.0 mg/dL (<2.0)
[2021-03-05] MEDS: MORPHINE 4 MG/1 ML INJ IV PRN (07:14)
--- NOTE | 2021-03-05 08:28 | Consultation ---
History of Present Illness Consult date: 03/05/21 Reason for Consult: CP for one week,left side numbness ,SOB.... History of present illness: Chest pain History of present illness: 65-year-old female past medical history of hyperlipidemia and herniated cervical disc was brought to the emergency room because of bilateral chest pain that began a week ago. She states that her pain is worse with taking a deep breath. Patient states that she has associated shortness of breath. She states that she went to Dr. Mckenzie her road contractor last week and had a chest x-ray which she states did not show any pneumonia and he referred her to a manager assurance. she states that she has an appointment with a manager assurance next week and she is going to see Dr. chase. Patient states also for the last couple of days she has had some slurring of her speech and numbness/tingling sensation to her left arm and left leg. States that she has a history of cervical radiculopathy and has had tingling in her left arm before but states the speech slurring and left leg tingling is new. She denies any cough, vomiting, diarrhea, leg swelling, hemoptysis, vision changes, weakness, gait disturbance. Patient had a stress test approximately 20 years ago. She is a never smoker. She denies any family or personal cardiac history or history of DVT/PE. Vitals are normal. EKG with left axis deviation, no STEMI. Labs with elevated D- dimer, otherwise stable. Patient has no focal neuro deficits on exam. admission for CP and stroke/TIA work-up and advised to order CT angio head and neck. CXR: 1. No acute findings. CT head without contrast: 1. No acute intracranial abnorm ality. CT angio head and neck: 1. No large vessel occlusion or flow-limiting stenosis intracranially. 2. Borderline flow-limiting stenosis of the proximal left cervical ICA due to mixed plaque. V/Q scan: 1. Low probability for pulmonary embolism. Patient seen by tele neurology, consult vascular regarding 50% stenosis of left ICA. Spoke to Dr. Wen, vascular surgery, will consult on patient Today she is complaining of CP increse with deep breath , intermittent left leg>left arm numbness no facial asymmetry According to her she was started 4 weeks back on cholesterol medicinf , denied smoking or CVA taking Hydrocodon daily for neck pain -- last MRI was 2 years ago Past History Past Medical History: hyperlipidemia, other (Herniated cervical disc) Medications and Allergies Allergies Allergy/AdvReac Type Severity Reaction Status Date / Time No Known Allergies Allergy Verified 03/04/21 16:19 Review of Systems All systems: negative Cardiovascular: chest pain Neurological: numbness, tingling, change in speech Past History Past Medical History: hyperlipidemia, other (Herniated cervical disc) Medications and Allergies Allergies Allergy/AdvReac Type Severity Reaction Status Date / Time No Known Allergies Allergy Verified 03/04/21 16:19 Home Medications Medication Instructions Recorded Confirmed Last Taken Type Cyclobenzaprine [Flexeril] 10 mg PO TID PRN 03/05/21 03/05/21 Unknown History Gabapentin [Neurontin] 300 mg PO BID PRN 03/05/21 03/05/21 Unknown History HYDROcodone/APAP 10-325 [[place] 1 each PO Q6HR PRN 03/05/21 03/05/21 Unknown History ] Olmesartan/Hydrochlorothiazide 1 tab PO QDAY 03/05/21 03/05/21 Unknown History [Benicar HCT 40-12.5 mg] Simvastatin 40 mg PO HS 03/05/21 03/05/21 Unknown History Active Meds: Active Medications Acetaminophen (Acetaminophen 325 Mg Tab) 650 mg PO Q6H PRN PRN Reason: Pain, Mild (1-3) Aspirin (Aspirin Ec 325 Mg Tab) 325 mg PO QDAY [facility] Atorvastatin Calcium (Atorvastatin 40 Mg Tab) 80 mg PO QHS [facility] Heparin Sodium (Porcine) (Heparin 5,000 Unit/1 Ml Vial) 5,000 unit SUB-Q Q12HR [facility] Sodium Chloride (Nacl 0.9% 1000 Ml) 1,000 mls @ 100 mls/hr IV DIRECT JAMES Last Admin: 03/05/21 03:02 Dose: 100 mls/hr Documented by: Morphine Sulfate (Morphine 4 Mg/1 Ml Inj) 2 mg IV Q5MIN PRN PRN Reason: Chest Pain unrelieved by NTG Last Admin: 03/05/21 07:14 Dose: 2 mg Documented by: Nitroglycerin (Nitroglycerin 0.4 Mg Tab Subl) 0.4 mg SL Q5M PRN PRN Reason: Chest Pain Pantoprazole Sodium (Pantoprazole 40 Mg Tab) 40 mg PO QDAY JAMES Sodium Chloride (Sodium Chloride 0.9% 10 Ml Flush Syringe) 10 ml IV PRN PRN PRN Reason: LINE FLUSH Sodium Chloride (Sodium Chloride 0.9% 10 Ml Flush Syringe) 10 ml IV PRN PRN PRN Reason: LINE FLUSH Tramadol HCl (Tramadol 50 Mg Tab) 50 mg PO Q6H PRN PRN Reason: Pain, Moderate (4-6) Last Admin: 03/05/21 03:02 Dose: 50 mg Documented by: Physical Examination - Vital Signs Vital Signs: Vital Signs Temp Pulse Resp BP Pulse Ox 98.8 F 71 18 109/62 97 03/04/21 16:23 03/04/21 16:23 03/04/21 16:23 03/04/21 16:23 03/04/21 16:23 - Constitutional General appearance: comfortable - EENT EENT: Present: PERRL, mucous membranes moist - Respiratory Respiratory: Present: chest non-tender, lungs clear, rhonchi - Cardiovascular Cardiovascular: Present: regular rate, normal S1, normal S2 Extremities: Present: no peripheral edema bilatateraly, no clubbing, cyanosis - Gastrointestinal Gastrointestinal: Present: normoactive bowel sounds - Integumentary Integumentary: Present: normal - Neurologic Cranial nerve examination: PERRL, EOMI, intact Speech examination: intact Sensorimotor examination: other (slight decrese sensation left arm and leg not face , no facial asymmetry , no visual deficit) Detailed motor examination: other (slight give away weakness left arm and leg reflexes are 2+. no clonus , no gonsalves sign ) - Psychiatric Psychiatric: Present: other (anxiety) - Level of Consciousness 1a. Level of Consciousness: alert/keenly responsive - LOC Questions 1b. LOC Questions: answers both correctly - LOC Command 1c. LOC Commands: performs tasks correctly - Best Gaze 2. Best Gaze: normal - Visual 3. Visual: no visual loss - Facial Palsy 4. Facial Palsy: normal symmetrical movement - Motor Arm 5a. Motor Arm Left: drift 5b. Motor Arm Right: no drift - Motor Leg 6a. Motor Leg Left: drift 6b. Motor Leg Right: no drift - Limb Ataxia 7. Limb Ataxia: absent - Sensory 8. Sensory: mild/moderate sensory loss - Best Language 9. Best Language: no aphasia - Dysarthria 10. Dysarthria: normal - Extinction and Inattention 11. Extinction/Inattention: no abnormality - Scoring Total Score: 3 Stroke Severity: Minor Stroke Results - Laboratory Findings CBC and BMP: 03/04/21 23:42 03/04/21 23:42 Abnormal Lab Findings: Abnormal Labs 03/04/21 03/04/21 03/04/21 17:06 17:06 17:06 [place] % (Auto) Seg Neuts % (Manual) 73.0 H D-Dimer 347.23 H Glucose 141 H HDL Cholesterol Ur Specific [place] 03/04/21 03/04/21 03/04/21 23:42 23:42 23:42 [place] % (Auto) 8.1 H Seg Neuts % (Manual) D-Dimer Glucose 104 H HDL Cholesterol 82 H Ur Specific [place] 03/05/21 05:03 [place] % (Auto) Seg Neuts % (Manual) D-Dimer Glucose HDL Cholesterol Ur Specific [place] 1.041 H Assessment and Plan Assessment and Plan VTE prophylaxis?: Chemical Plan of care discussed with patient/family: Yes - Patient Problems # CP intermittent worse with deep breath,R/O Acute coronary syndrome ,R/O Aortic dissection --pain radiate to her back ? -Admit the patient to the medical floor. - Aspirin 325 mg p.o. daily. - Lipitor 80 mg p.o. daily. - We will do the serial cardiac enzymes. -We will also do echocardiogram and possibly stress test am -consult cardiology for evaluation # Numbness in left leg and to lesser extent arm with slight weakness left side not face -r/o CVA -R/O Cervical disc disease - no pronator drift no facial asymmetry -R/O cervical disc /spinal stenosis -MRI Cervical spine -Aspirin 325 mg p.o. daily. - Lipitor 80 mg p.o. daily. - Will consult PT OT any speech evaluation. - Brain MRI is pending will add MRI cervical spine -CTA Brain and neck showed left ICA stenosis --schadualed for US carotid and vascular surgery evaluate. -Echo is pending -LDL#[id number] # Slurred speech/ difficulty with words findings resolved as per pt. -Aspirin 325 mg p.o. daily. Lipitor 80 mg p.o. daily. -Will consult PT OT any speech evaluation.-We will do a MRI of the brain # Hyperlipidemia -Lipitor 80 mg p.o. daily. -LDL#[id number] #SOB (shortness of breath) -Oxygen via nasal cannula 3 to per minute DuoNeb by nebulizer every 4 hours. - Albuterol via nebulizer every 4 hours as needed # Stenosis of carotid artery -Aspirin 325 mg p.o. daily Lipitor 80 mg p.o. daily -Vascular surgeon ? US carotid schaduled # radiating pain to her back -R/O aortic dissection -cardiology will evaluate # Multiple complaint -with possibility of underlying anxiety -consider celexa 10 mg daily if work up is unremarkable (7) DVT prophylaxis Current Visit: Yes Status: Acute Plan to address problem: Heparin 5000 units subcu every 12 hours for DVT prophylaxis. Protonix 40 mg p.o. daily for GI prophylaxis. Patient is a full code Will follow as needed
[2021-03-05] MEDS ORDERED: GABAPENTIN 300 MG CAP PO PRN (08:56)
[2021-03-05] MEDS ORDERED: CYCLOBENZAPRINE 10 MG TAB PO PRN (09:00)
--- NOTE | 2021-03-05 09:15 | Progress Note ---
Assessment and Plan Assessment and plan: - Patient Problems (1) Acute coronary syndrome Current Visit: Yes Status: Acute Plan to address problem: Admit the patient to the medical floor. Aspirin 325 mg p.o. daily. Lipitor 80 mg p.o. daily. We will do the serial cardiac enzymes. We will also do echocardiogram and consult cardiology for evaluation (2) Numbness in left leg Current Visit: Yes Status: Acute Plan to address problem: Aspirin 325 mg p.o. daily. Lipitor 80 mg p.o. daily. Will consult PT OT any speech evaluation. We will do a MRI of the brain and MRA of the brain and neck with and without contrast. Echocardiogram and neurology consult (3) Slurred speech Current Visit: Yes Status: Acute Plan to address problem: Aspirin 325 mg p.o. daily. Lipitor 80 mg p.o. daily. Will consult PT OT any speech evaluation. We will do a MRI of the brain and MRA of the brain and neck with and without contrast. Echocardiogram and neurology consult (4) Hyperlipidemia Current Visit: Yes Status: Acute Plan to address problem: Lipitor 80 mg p.o. daily. Which recheck the lipid panel in the morning. We will continue the home medication (5) SOB (shortness of breath) Current Visit: Yes Status: Acute Plan to address problem: Oxygen via nasal cannula 3 to per minute DuoNeb by nebulizer every 4 hours. Albuterol via nebulizer every 4 hours as needed (6) Stenosis of carotid artery Current Visit: Yes Status: Acute Qualifiers: Laterality: left Qualified Code(s): I65.22 - Occlusion and stenosis of left carotid artery Plan to address problem: Aspirin 325 mg p.o. daily Lipitor 80 mg p.o. daily we will consult vascular surgeon for evaluation and treatment (7) DVT prophylaxis Current Visit: Yes Status: Acute Plan to address problem: Heparin 5000 units subcu every 12 hours for DVT prophylaxis. Protonix 40 mg p.o. daily for GI prophylaxis. Patient is a full code 03/05/21 Patient presents with chest pain, slurred speech, tingling and numbness. Cardiology and Neurology consulted. For MRI Brain. History Interval history: Chest pain Slurred speech Hospitalist Physical - Physical exam Narrative exam: Gen: Not in acute distress, lying in bed HEENT: Normocephalic, atraumatic Neck: Supple, no JVD Lungs: Clear to auscultation bilaterally, no wheeze Heart: S1 and S2 reg, no murmurs, rubs or gallop Abd:soft, non-tender, non distended, normal bowel sounds Ext: No edema, clubbing or cyanosis Neuro: Awake, alert, oriented X 3, moves all extremities - Constitutional Vitals: Temp Pulse Resp BP Pulse Ox 98.2 F 56 L 18 131/69 96 03/04/21 21:24 03/05/21 06:01 03/05/21 08:28 03/05/21 06:01 03/05/21 08:28 General appearance: Present: no acute distress, well-nourished HEART Score - HEART Score EKG: Non-specific Age: 45-65 Risk factors: No known risk factors Troponin: Troponin T < 0.010 ng/mL (0.00-0.029) 03/05/21 08:03 Troponin: < normal limit - Critical Actions Critical Actions: 0-3 pts:0.9-1.7%risk of adverse cardiac event.Candidate for discharge Results - Labs CBC & Chem 7: 03/04/21 23:42 03/04/21 23:42 Labs: Laboratory Last Values WBC 7.7 K/mm3 (4.5-11.0) 03/04/21 23:42 RBC 4.25 M/mm3 (3.65-5.03) 03/04/21 23:42 Hgb 13.3 gm/dl (10.1-14.3) 03/04/21 23:42 Hct 39.3 % (30.3-42.9) 03/04/21 23:42 MCV 93 fl (79-97) 03/04/21 23:42 MCH 31 pg (28-32) 03/04/21 23:42 MCHC 34 % (30-34) 03/04/21 23:42 RDW 14.2 % (13.2-15.2) 03/04/21 23:42 Plt Count 329 K/mm3 (140-440) 03/04/21 23:42 Lymph % (Auto) 26.8 % (13.4-35.0) 03/04/21 23:42 [place] % (Auto) 8.1 % (0.0-7.3) H 03/04/21 23:42 Eos % (Auto) 1.4 % (0.0-4.3) 03/04/21 23:42 Baso % (Auto) 0.7 % (0.0-1.8) 03/04/21 23:42 Lymph # (Auto) 2.1 K/mm3 (1.2-5.4) 03/04/21 23:42 [place] # (Auto) 0.6 K/mm3 (0.0-0.8) 03/04/21 23:42 Eos # (Auto) 0.1 K/mm3 (0.0-0.4) 03/04/21 23:42 Baso # (Auto) 0.1 K/mm3 (0.0-0.1) 03/04/21 23:42 Add Manual Diff Complete 03/04/21 17:06 Total Counted 100 03/04/21 17:06 Seg Neutrophils % 63.0 % (40.0-70.0) 03/04/21 23:42 Seg Neuts % (Manual) 73.0 % (40.0-70.0) H 03/04/21 17:06 Lymphocytes % (Manual) 23.0 % (13.4-35.0) 03/04/21 17:06 Monocytes % (Manual) 4.0 % (0.0-7.3) 03/04/21 17:06 Nucleated RBC % Not Reportable 03/04/21 17:06 Seg Neutrophils # 4.9 K/mm3 (1.8-7.7) 03/04/21 23:42 Seg Neutrophils # Man 5.0 K/mm3 (1.8-7.7) 03/04/21 17:06 Band Neutrophils # 0.0 K/mm3 03/04/21 17:06 Lymphocytes # (Manual) 1.6 K/mm3 (1.2-5.4) 03/04/21 17:06 Abs React Lymphs (Man) 0.0 K/mm3 03/04/21 17:06 Monocytes # (Manual) 0.3 K/mm3 (0.0-0.8) 03/04/21 17:06 Eosinophils # (Manual) 0.0 K/mm3 (0.0-0.4) 03/04/21 17:06 Basophils # (Manual) 0.0 K/mm3 (0.0-0.1) 03/04/21 17:06 Metamyelocytes # 0.0 K/mm3 03/04/21 17:06 Myelocytes # 0.0 K/mm3 03/04/21 17:06 Promyelocytes # 0.0 K/mm3 03/04/21 17:06 Blast Cells # 0.0 K/mm3 03/04/21 17:06 WBC Morphology Not Reportable 03/04/21 17:06 WBC Morphology TNR 03/04/21 17:06 Hypersegmented Neuts Not Reportable 03/04/21 17:06 Hyposegmented Neuts Not Reportable 03/04/21 17:06 Hypogranular Neuts Not Reportable 03/04/21 17:06 Smudge Cells Not Reportable 03/04/21 17:06 Toxic Granulation Not Reportable 03/04/21 17:06 Toxic Vacuolation Not Reportable 03/04/21 17:06 Dohle Bodies Not Reportable 03/04/21 17:06 Pelger-Huet Anomaly Not Reportable 03/04/21 17:06 Yoselyn Rods Not Reportable 03/04/21 17:06 Platelet Estimate Not Reportable 03/04/21 17:06 Clumped Platelets Not Reportable 03/04/21 17:06 Plt Clumps, EDTA Not Reportable 03/04/21 17:06 Large Platelets Not Reportable 03/04/21 17:06 Giant Platelets Not Reportable 03/04/21 17:06 Platelet Satelliting Not Reportable 03/04/21 17:06 Plt Morphology Comment Not Reportable 03/04/21 17:06 RBC Morphology Normal 03/04/21 17:06 Dimorphic RBCs Not Reportable 03/04/21 17:06 Polychromasia Not Reportable 03/04/21 17:06 Hypochromasia Not Reportable 03/04/21 17:06 Poikilocytosis Not Reportable 03/04/21 17:06 Anisocytosis Not Reportable 03/04/21 17:06 Microcytosis Not Reportable 03/04/21 17:06 Macrocytosis Not Reportable 03/04/21 17:06 Spherocytes Not Reportable 03/04/21 17:06 Pappenheimer Bodies Not Reportable 03/04/21 17:06 Sickle Cells Not Reportable 03/04/21 17:06 Target Cells Not Reportable 03/04/21 17:06 Tear Drop Cells Not Reportable 03/04/21 17:06 Ovalocytes Not Reportable 03/04/21 17:06 Helmet Cells Not Reportable 03/04/21 17:06 [place] Bodies Not Reportable 03/04/21 17:06 [place] Rings Not Reportable 03/04/21 17:06 [place] Cells Not Reportable 03/04/21 17:06 Bite Cells Not Reportable 03/04/21 17:06 Crenated Cell Not Reportable 03/04/21 17:06 Elliptocytes Not Reportable 03/04/21 17:06 Acanthocytes (Spur) Not Reportable 03/04/21 17:06 Rouleaux Not Reportable 03/04/21 17:06 Hemoglobin C Crystals Not Reportable 03/04/21 17:06 Schistocytes Not Reportable 03/04/21 17:06 Malaria parasites Not Reportable 03/04/21 17:06 Nick Bodies Not Reportable 03/04/21 17:06 Hem Pathologist Commnt No 03/04/21 17:06 PT 12.6 Sec. (12.2-14.9) 03/04/21 17:06 INR 0.89 (0.87-1.13) 03/04/21 17:06 APTT 33.8 Sec. (24.2-36.6) 03/04/21 17:06 D-Dimer 347.23 ng/mlDDU (0-234) H 03/04/21 17:06 Sodium 140 mmol/L (137-145) 03/04/21 23:42 Potassium 3.9 mmol/L (3.6-5.0) 03/04/21 23:42 Chloride 101.2 mmol/L (98-107) 03/04/21 23:42 Carbon Dioxide 30 mmol/L (22-30) 03/04/21 23:42 Anion Gap 13 mmol/L 03/04/21 23:42 BUN 9 mg/dL (7-17) 03/04/21 23:42 Creatinine 0.6 mg/dL (0.6-1.2) 03/04/21 23:42 Estimated GFR > 60 ml/min 03/04/21 23:42 BUN/Creatinine Ratio 15 % 03/04/21 23:42 Glucose 104 mg/dL (65-100) H 03/04/21 23:42 Calcium 9.1 mg/dL (8.4-10.2) 03/04/21 23:42 Total Bilirubin 0.50 mg/dL (0.1-1.2) 03/04/21 17:06 AST 23 units/L (5-40) 03/04/21 17:06 ALT 14 units/L (7-56) 03/04/21 17:06 Alkaline Phosphatase 66 units/L (35-129) 03/04/21 17:06 Troponin T < 0.010 ng/mL (0.00-0.029) 03/05/21 08:03 Total Protein 7.4 g/dL (6.3-8.2) 03/04/21 17:06 Albumin 4.0 g/dL (3.9-5) 03/04/21 17:06 Albumin/Globulin Ratio 1.2 % 03/04/21 17:06 Triglycerides 89 mg/dL (2-149) 03/04/21 23:42 Cholesterol 174 mg/dL (50-199) 03/04/21 23:42 LDL Cholesterol Direct 78 mg/dL (50-130) 03/04/21 23:42 HDL Cholesterol 82 mg/dL (40-59) H 03/04/21 23:42 Cholesterol/HDL Ratio 2.12 % 03/04/21 23:42 TSH 0.518 mlU/mL (0.270-4.200) 03/04/21 23:42 Urine Color Yellow (Yellow) 03/05/21 05:03 Urine Turbidity Clear (Clear) 03/05/21 05:03 Urine pH 5.0 (5.0-7.0) 03/05/21 05:03 Ur Specific [place] 1.041 (1.003-1.030) H 03/05/21 05:03 Urine Protein <15 mg/dl mg/dL (Negative) 03/05/21 05:03 Urine Glucose (UA) Neg mg/dL (Negative) 03/05/21 05:03 Urine Ketones Neg mg/dL (Negative) 03/05/21 05:03 Urine Blood Sm (Negative) 03/05/21 05:03 Urine Nitrite Neg (Negative) 03/05/21 05:03 Urine Bilirubin Neg (Negative) 03/05/21 05:03 Urine Urobilinogen < 2.0 mg/dL (<2.0) 03/05/21 05:03 Ur Leukocyte Esterase Neg (Negative) 03/05/21 05:03 Urine WBC (Auto) 1.0 /HPF (0.0-6.0) 03/05/21 05:03 Urine RBC (Auto) 3.0 /HPF (0.0-6.0) 03/05/21 05:03 U Epithel Cells (Auto) 6.0 /HPF (0-13.0) 03/05/21 05:03 Urine Mucus Few /HPF 03/05/21 05:03 [place]/IV: Voiding Method Toilet Active Medications - Current Medications Current Medications: Generic Name Dose Route Start Last Admin Trade Name Freq PRN Reason Stop Dose Admin Acetaminophen 650 mg 03/04/21 23:13 Acetaminophen 325 Mg Tab PO Q6H PRN Pain, Mild (1-3) Hydrocodone Bitart/Acetaminophen 1 each 03/05/21 08:56 Hydrocodone/Acetaminophen 10-325mg Tab PO Q6H PRN PAIN, MODERATE (4-6) Aspirin 325 mg 03/05/21 10:00 Aspirin Ec 325 Mg Tab PO QDAY JAMES Cyclobenzaprine HCl 10 mg 03/05/21 09:00 Cyclobenzaprine 10 Mg Tab PO TID PRN Muscle Spasm Gabapentin 300 mg 03/05/21 08:56 Gabapentin 300 Mg Cap PO BID PRN Pain, Mild (1-3) Heparin Sodium (Porcine) 5,000 unit 03/05/21 10:00 Heparin 5,000 Unit/1 Ml Vial SUB-Q Q12HR JAMES Hydrochlorothiazide 12.5 mg 03/05/21 10:00 Hydrochlorothiazide 12.5 Mg Cap PO QDAY JAMES Sodium Chloride 1,000 mls @ 100 mls/hr 03/04/21 23:15 03/05/21 03:02 Nacl 0.9% 1000 Ml IV 100 mls/hr DIRECT JAMES Administration Losartan Potassium 50 mg 03/05/21 10:00 Losartan 50 Mg Tab PO QDAY JAMES Morphine Sulfate 2 mg 03/04/21 23:13 03/05/21 07:14 Morphine 4 Mg/1 Ml Inj IV 2 mg Q5MIN PRN Administration Chest Pain unrelieved by NTG Nitroglycerin 0.4 mg 03/04/21 23:13 Nitroglycerin 0.4 Mg Tab Subl SL Q5M PRN Chest Pain Pantoprazole Sodium 40 mg 03/05/21 10:00 Pantoprazole 40 Mg Tab PO QDAY JAMES Pravastatin Sodium 80 mg 03/05/21 22:00 Pravastatin 80 Mg Tab PO QHS JAMES Sodium Chloride 10 ml 03/04/21 23:13 Sodium Chloride 0.9% 10 Ml Flush Syringe IV PRN PRN LINE FLUSH Sodium Chloride 10 ml 03/04/21 23:13 Sodium Chloride 0.9% 10 Ml Flush Syringe IV PRN PRN LINE FLUSH
[2021-03-05] MEDS ORDERED: OLMESARTAN PO SCH (10:00)
[2021-03-05] MEDS ORDERED: [UNRECOGNIZED DRUG - OTHER] PO SCH (10:00)
[2021-03-05] MEDS ORDERED: HYDROCHLOROTHIAZIDE PO SCH (10:00)
[2021-03-05] MEDS: ASPIRIN EC 325 MG TAB PO SCH (10:31)
[2021-03-05] MEDS: LOSARTAN 50 MG TAB PO SCH (10:32)
[2021-03-05] MEDS: hydroCHLOROthiazide 12.5 MG CAP PO SCH (10:32)
[2021-03-05] MEDS: HYDROcodone/ACETAMINOPHEN 10-325MG TAB PO PRN ×2 (10:32→15:23)
[2021-03-05] MEDS: PANTOPRAZOLE 40 MG TAB PO SCH (10:32)
[2021-03-05] MEDS: HEPARIN 5,000 UNIT/1 ML VIAL SUB-Q SCH ×2 (10:33→21:52)
--- NOTE | 2021-03-05 15:41 | Consultation ---
History of Present Illness - Reason for Consult Consult date: 03/05/21 SHIKHA Requesting physician: LORNE VILLALOBOS - History of Present Illness 65-year-old female past medical history of hyperlipidemia and herniated cervical disc was brought to the emergency room because of bilateral chest pain that began a week ago. She states that her pain is worse with taking a deep breath. Patient states that she has associated shortness of breath. She states that she went to Dr. Mckenzie her manager of recruiting last week and had a chest x-ray which she states did not show any pneumonia and he referred her to a retail field merchandiser. she states that she has an appointment with a retail field merchandiser next week and she is going to see Dr. chase. Patient states also for the last couple of days she has had some slurring of her speech and numbness/tingling sensation to her left arm and left leg. States that she has a history of cervical radiculopathy and has had tingling in her left arm before but states the speech slurring and left leg tingling is new. She denies any cough, vomiting, diarrhea, leg swelling, hemoptysis, vision changes, weakness, gait disturbance. Patient had a stress test approximately 20 years ago. She is a never smoker. She denies any family or personal cardiac history or history of DVT/PE. Vitals are normal. EKG with left axis deviation, no STEMI. Labs with elevated D- dimer, otherwise stable. Patient has no focal neuro deficits on exam. admission for CP and stroke/TIA work-up and advised to order CT angio head and neck. CXR: 1. No acute findings. CT head without contrast: 1. No acute intracranial abnormality. CT angio head and neck: 1. No large vessel occlusion or flow- limiting stenosis intracranially. 2. Borderline flow-limiting stenosis of the proximal left cervical ICA due to mixed plaque. V/Q scan: 1. Low probability for pulmonary embolism. Patient seen by tele neurology, Vascular consulted for evaluation of left proximal ICA stenosis. I reviewed the CT scan which demonstrated, upon my impression, of likely a less than 50% stenosis of the left proximal ICA. I ordered a carotid ultrasound for another modality to evaluate this lesion. The patient slurred speech has resolved. The patient continues to have numbness of her left leg. The patient has had chronic issues with her left arm due to cervical radiculopathy which is known. Patient has palpable radial pulses and pedal pulses. She has strength in her arms and legs. Past History Past Medical History: hyperlipidemia, other (Herniated cervical disc) Medications and Allergies Allergies Allergy/AdvReac Type Severity Reaction Status Date / Time No Known Allergies Allergy Verified 03/04/21 16:19 Home Medications Medication Instructions Recorded Confirmed Last Taken Type Cyclobenzaprine [Flexeril] 10 mg PO TID PRN 03/05/21 03/05/21 Unknown History Gabapentin [Neurontin] 300 mg PO BID PRN 03/05/21 03/05/21 Unknown History HYDROcodone/APAP 10-325 [[place] 1 each PO Q6HR PRN 03/05/21 03/05/21 Unknown History ] Olmesartan/Hydrochlorothiazide 1 tab PO QDAY 03/05/21 03/05/21 Unknown History [Benicar HCT 40-12.5 mg] Simvastatin 40 mg PO HS 03/05/21 03/05/21 Unknown History Active Meds: Active Medications Acetaminophen (Acetaminophen 325 Mg Tab) 650 mg PO Q6H PRN PRN Reason: Pain, Mild (1-3) Hydrocodone Bitart/Acetaminophen (Hydrocodone/Acetaminophen 10-325mg Tab) 1 each PO Q6H PRN PRN Reason: PAIN, MODERATE (4-6) Last Admin: 03/05/21 15:23 Dose: 1 each Documented by: Aspirin (Aspirin Ec 325 Mg Tab) 325 mg PO QDAY [facility] Last Admin: 03/05/21 10:31 Dose: 325 mg Documented by: Cyclobenzaprine HCl (Cyclobenzaprine 10 Mg Tab) 10 mg PO TID PRN PRN Reason: Muscle Spasm Gabapentin (Gabapentin 300 Mg Cap) 300 mg PO BID PRN PRN Reason: Pain, Mild (1-3) Heparin Sodium (Porcine) (Heparin 5,000 Unit/1 Ml Vial) 5,000 unit SUB-Q Q12HR [facility] Last Admin: 03/05/21 10:33 Dose: 5,000 unit Documented by: Hydrochlorothiazide (Hydrochlorothiazide 12.5 Mg Cap) 12.5 mg PO QDAY [facility] Last Admin: 03/05/21 10:32 Dose: 12.5 mg Documented by: Sodium Chloride (Nacl 0.9% 1000 Ml) 1,000 mls @ 100 mls/hr IV DIRECT [facility] Last Admin: 03/05/21 03:02 Dose: 100 mls/hr Documented by: Losartan Potassium (Losartan 50 Mg Tab) 50 mg PO QDAY [facility] Last Admin: 03/05/21 10:32 Dose: 50 mg Documented by: Morphine Sulfate (Morphine 4 Mg/1 Ml Inj) 2 mg IV Q5MIN PRN PRN Reason: Chest Pain unrelieved by NTG Last Admin: 03/05/21 07:14 Dose: 2 mg Documented by: Nitroglycerin (Nitroglycerin 0.4 Mg Tab Subl) 0.4 mg SL Q5M PRN PRN Reason: Chest Pain Pantoprazole Sodium (Pantoprazole 40 Mg Tab) 40 mg PO QDAY [facility] Last Admin: 03/05/21 10:32 Dose: 40 mg Documented by: Pravastatin Sodium (Pravastatin 80 Mg Tab) 80 mg PO QHS [facility] Sodium Chloride (Sodium Chloride 0.9% 10 Ml Flush Syringe) 10 ml IV PRN PRN PRN Reason: LINE FLUSH Sodium Chloride (Sodium Chloride 0.9% 10 Ml Flush Syringe) 10 ml IV PRN PRN PRN Reason: LINE FLUSH Review of Systems All systems: negative (see HPI) Exam - Constitutional Vitals: Temp Pulse Resp BP Pulse Ox 97.8 F 60 18 118/84 96 03/05/21 08:19 03/05/21 08:19 03/05/21 08:28 03/05/21 08:19 03/05/21 08:28 General appearance: Present: no acute distress - EENT Eyes: Present: EOM intact ENT: hearing intact - Neck Neck: Present: supple - Respiratory Respiratory effort: normal - Extremities Extremities: no ischemia, pulses intact, normal temperature, normal color Peripheral Pulses: within normal limits - Abdominal General gastrointestinal: Present: soft, non-tender - Psychiatric Psychiatric: appropriate mood/affect, cooperative - Neurologic Neurologic: other (Numbness of the left leg.) Results - Labs CBC & Chem 7: 03/04/21 23:42 03/04/21 23:42 Labs: Abnormal lab results 03/04/21 03/04/21 03/04/21 Range/Units 17:06 17:06 17:06 [place] % (Auto) (0.0-7.3) % Seg Neuts % (Manual) 73.0 H (40.0-70.0) % D-Dimer 347.23 H (0-234) ng/mlDDU Glucose 141 H (65-100) mg/dL HDL Cholesterol (40-59) mg/dL Ur Specific [place] (1.003-1.030) 03/04/21 03/04/21 03/04/21 Range/Units 23:42 23:42 23:42 [place] % (Auto) 8.1 H (0.0-7.3) % Seg Neuts % (Manual) (40.0-70.0) % D-Dimer (0-234) ng/mlDDU Glucose 104 H (65-100) mg/dL HDL Cholesterol 82 H (40-59) mg/dL Ur Specific [place] (1.003-1.030) 03/05/21 Range/Units 05:03 [place] % (Auto) (0.0-7.3) % Seg Neuts % (Manual) (40.0-70.0) % D-Dimer (0-234) ng/mlDDU Glucose (65-100) mg/dL HDL Cholesterol (40-59) mg/dL Ur Specific [place] 1.041 H (1.003-1.030) Assessment and Plan 65-year-old female who presents with neurologic symptoms and left proximal ICA borderline 50% stenosis. Continue medical management. We will obtain carotid ultrasound for evaluation of the left ICA. Await ultrasound for further recommendations. Patient also complaining of chest pain with pleuritic component that radiates occasionally to the back which is manageable and not that severe. CT scan of the neck included the aortic arch which was normal in appearance except for a bovine arch which is a normal variant. Saw patient having CT scan of the chest and abdomen with contrast. Changed exam to CT angiogram of the chest, abdomen, and pelvis in order to properly exclude dissection. I do not suspect this represents dissection, but this can be excluded given the radiation to the back. Will await carotid ultrasound.
--- NOTE | 2021-03-05 16:22 | Consultation ---
History of Present Illness Consult date: 03/05/21 Requesting physician: GINETTE DIEZ Consult reason: chest pain History of present illness: She claims that she has been experiencing substernal chest pain radiating to both scapula areas over the past one week. Her chest pain is not related to her level of activity. She describes a pleuritic component to her chest pain. Yesterday, she claims that she started experiencing a cold sensation in her left leg. Due to persistence of chest pain and her new symptom, she decided to come to the emergency department. She describes her pain as soreness at times. Upon presentation, due to elevated D dimer, she had a VQ scan which was of low probability for pulmonary embolism. Brain CT scan showed no acute findings. CTA revealed boderline LICA stenosis. She claims that she has a history of herniated cervical disc with radiculopathy and initially attributed her symptoms to that. She also mentioned that she had been scheduled by her PCP to see me as an outpatient next week for cardiac evaluation. Past History Past Medical History: hypertension, hyperlipidemia, other (Herniated cervical disc) Past Surgical History: hysterectomy, Other (arthroscopic knee surgery) Social history: denies: smoking, alcohol abuse Family history: denies: CAD Medications and Allergies Allergies Allergy/AdvReac Type Severity Reaction Status Date / Time No Known Allergies Allergy Verified 03/04/21 16:19 Home Medications Medication Instructions Recorded Confirmed Last Taken Type Cyclobenzaprine [Flexeril] 10 mg PO TID PRN 03/05/21 03/05/21 Unknown History Gabapentin [Neurontin] 300 mg PO BID PRN 03/05/21 03/05/21 Unknown History HYDROcodone/APAP 10-325 [[place] 1 each PO Q6HR PRN 03/05/21 03/05/21 Unknown History ] Olmesartan/Hydrochlorothiazide 1 tab PO QDAY 03/05/21 03/05/21 Unknown History [Benicar HCT 40-12.5 mg] Simvastatin 40 mg PO HS 03/05/21 03/05/21 Unknown History Active Meds: Active Medications Acetaminophen (Acetaminophen 325 Mg Tab) 650 mg PO Q6H PRN PRN Reason: Pain, Mild (1-3) Hydrocodone Bitart/Acetaminophen (Hydrocodone/Acetaminophen 10-325mg Tab) 1 each PO Q6H PRN PRN Reason: PAIN, MODERATE (4-6) Last Admin: 03/05/21 15:23 Dose: 1 each Documented by: Aspirin (Aspirin Ec 325 Mg Tab) 325 mg PO QDAY [facility] Last Admin: 03/05/21 10:31 Dose: 325 mg Documented by: Cyclobenzaprine HCl (Cyclobenzaprine 10 Mg Tab) 10 mg PO TID PRN PRN Reason: Muscle Spasm Gabapentin (Gabapentin 300 Mg Cap) 300 mg PO BID PRN PRN Reason: Pain, Mild (1-3) Heparin Sodium (Porcine) (Heparin 5,000 Unit/1 Ml Vial) 5,000 unit SUB-Q Q12HR [facility] Last Admin: 03/05/21 10:33 Dose: 5,000 unit Documented by: Hydrochlorothiazide (Hydrochlorothiazide 12.5 Mg Cap) 12.5 mg PO QDAY [facility] Last Admin: 03/05/21 10:32 Dose: 12.5 mg Documented by: Sodium Chloride (Nacl 0.9% 1000 Ml) 1,000 mls @ 100 mls/hr IV DIRECT [facility] Last Admin: 03/05/21 03:02 Dose: 100 mls/hr Documented by: Losartan Potassium (Losartan 50 Mg Tab) 50 mg PO QDAY [facility] Last Admin: 03/05/21 10:32 Dose: 50 mg Documented by: Morphine Sulfate (Morphine 4 Mg/1 Ml Inj) 2 mg IV Q5MIN PRN PRN Reason: Chest Pain unrelieved by NTG Last Admin: 03/05/21 07:14 Dose: 2 mg Documented by: Nitroglycerin (Nitroglycerin 0.4 Mg Tab Subl) 0.4 mg SL Q5M PRN PRN Reason: Chest Pain Pantoprazole Sodium (Pantoprazole 40 Mg Tab) 40 mg PO QDAY [facility] Last Admin: 03/05/21 10:32 Dose: 40 mg Documented by: Pravastatin Sodium (Pravastatin 80 Mg Tab) 80 mg PO QHS [facility] Sodium Chloride (Sodium Chloride 0.9% 10 Ml Flush Syringe) 10 ml IV PRN PRN PRN Reason: LINE FLUSH Sodium Chloride (Sodium Chloride 0.9% 10 Ml Flush Syringe) 10 ml IV PRN PRN PRN Reason: LINE FLUSH Review of Systems Constitutional: no fever, no chills Ears, nose, mouth and throat: no ear pain, no ear discharge, no dysphagia, no sore throat Cardiovascular: chest pain, no orthopnea, no palpitations, no lightheadedness, no shortness of breath Respiratory: no cough, no hemoptysis, no dyspnea on exertion Gastrointestinal: no nausea, no vomiting, no diarrhea, no constipation Genitourinary Female: no dysuria, no urinary frequency Rectal: no pain, no bleeding Musculoskeletal: no neck stiffness, no muscle weakness Integumentary: no rash, no pruritis Neurological: no weakness, no headaches Endocrine: no cold intolerance, no heat intolerance Hematologic/Lymphatic: no easy bruising, no easy bleeding Allergic/Immunologic: no urticaria, no wheezing Physical Examination Vital Signs Last Vital Signs Temp 98.2 F 03/05/21 15:41 Pulse 61 03/05/21 15:41 Resp 18 03/05/21 08:28 BP 156/83 03/05/21 15:41 Pulse Ox 98 03/05/21 15:41 General appearance: no acute distress HEENT: Positive: EOMI, Normocephaly, Mucus Membranes Moist Neck: Positive: neck supple, trachea midline Cardiac: Positive: Reg Rate and Rhythm Lungs: Positive: clear to auscultation Neuro: Positive: Grossly Intact Abdomen: Positive: Soft, Active Bowel Sounds. Negative: Tender Skin: Positive: Clear. Negative: Rash Musculoskeletal: Normal Range of Motion Extremities: Present: normal. Absent: edema Results 03/04/21 23:42 03/04/21 23:42 Cardiac Enzymes 03/04/21 Range/Units 17:06 AST 23 (5-40) units/L Coagulation 03/04/21 Range/Units 17:06 PT 12.6 (12.2-14.9) Sec. INR 0.89 (0.87-1.13) APTT 33.8 (24.2-36.6) Sec. Lipids 03/04/21 Range/Units 23:42 Triglycerides 89 (2-149) mg/dL Cholesterol 174 (50-199) mg/dL HDL Cholesterol 82 H (40-59) mg/dL Cholesterol/HDL Ratio 2.12 % CBC 03/04/21 03/04/21 Range/Units 17:06 23:42 WBC 6.9 7.7 (4.5-11.0) K/mm3 RBC 4.33 4.25 (3.65-5.03) M/mm3 Hgb 13.6 13.3 (10.1-14.3) gm/dl Hct 39.9 39.3 (30.3-42.9) % Plt Count 362 329 (140-440) K/mm3 Lymph # (Auto) 2.1 (1.2-5.4) K/mm3 [place] # (Auto) 0.6 (0.0-0.8) K/mm3 Eos # (Auto) 0.1 (0.0-0.4) K/mm3 Baso # (Auto) 0.1 (0.0-0.1) K/mm3 Comprehensive Metabolic Panel 03/04/21 03/04/21 Range/Units 17:06 23:42 Sodium 139 140 (137-145) mmol/L Potassium 3.9 3.9 (3.6-5.0) mmol/L Chloride 99.2 101.2 (98-107) mmol/L Carbon Dioxide 28 30 (22-30) mmol/L BUN 11 9 (7-17) mg/dL Creatinine 0.6 0.6 (0.6-1.2) mg/dL Glucose 141 H 104 H (65-100) mg/dL Calcium 9.2 9.1 (8.4-10.2) mg/dL AST 23 (5-40) units/L ALT 14 (7-56) units/L Alkaline Phosphatase 66 (35-129) units/L Total Protein 7.4 (6.3-8.2) g/dL Albumin 4.0 (3.9-5) g/dL - Imaging and Cardiology EKG: image reviewed EKG interpretations - EKG Sinus rhythms and dysrhythmias: sinus rhythm QRS axis and voltage: left axis deviation Assessment and Plan Obtain echocardiogram. Lexiscan stress test with nuclear imaging in a.m. - Patient Problems (1) Chest pain Current Visit: Yes Status: Acute Qualifiers: Chest pain type: other chest pain Qualified Code(s): R07.89 - Other chest pain; R07.8 - Other chest pain (2) Paresthesia Current Visit: Yes Status: Acute (3) Speech disturbance Current Visit: Yes Status: Acute (4) Elevated d-dimer Current Visit: Yes Status: Acute (5) Hypertension Current Visit: Yes Status: Chronic Qualifiers: Hypertension type: primary hypertension Qualified Code(s): I10 - Essential (primary) hypertension (6) Slipped cervical disc Current Visit: Yes Status: Chronic
--- NOTE | 2021-03-05 18:31 | Cat Scan Report ---
CTA CHEST, ABDOMEN, AND PELVIS WITHOUT AND WITH IV CONTRAST INDICATION: CP, aortic dissection rule out 100 ML OMNI 350 . TECHNIQUE: Axial CT images were obtained through the chest, abdomen, and pelvis before and after injection of IV contrast. 3 plane MIP reconstructions were produced. All CT scans at this location are performed usi ng CT dose reduction for ALARA by means of automated exposure control. COMPARISON: None available. FINDINGS: Heart: Mild cardiomegaly. Thoracic Aorta: No significant abnormality. Great Vessels: No significant abnormality. Pulmonary Arteries: No significant abnormality. Additional Chest Findings: Lungs are clear. Hypodensities are noted within both thyroid lobes. Larger on the left measures 8 mm. There is also a calcified nodule in the left thyroid lobe anteriorly. Abdominal Aorta: There is mild atherosclerotic calcification. Caliber is normal. Renal arteries: No acute abnormality. There are accessory renal arteries bilaterally arising from the more inferior abdominal aorta. Celiac artery: No significant abnormality. Superior Mesenteric Artery: No significant abnormality. Inferior mesenteric artery: No significant abnormality. Right Iliac Arteries: No significant abnormality.. Left Iliac Arteries: No significant abnormality.. Additional Abdominopelvic Findings: No significant abnormality. Skeletal Structures: No significant abnormality. IMPRESSION: 1. No acute vascular abnormality. 2. Incidental findings as above. Signer Name: Yogi Thurman MD Signed: 03/05/2021 6:26 PM Workstation Name: [id number]
[2021-03-05] MEDS ORDERED: NON-FORMULARY EACH (Simvastatin [Simvastatin] 40 MG Tablet) PO SCH (22:00)
[2021-03-05] MEDS ORDERED: PRAVASTATIN 80 MG TAB PO SCH (22:00)
[2021-03-06] MEDS: HYDROcodone/ACETAMINOPHEN 10-325MG TAB PO PRN (05:19)
[2021-03-06 06:10] LABS: Hematocrit 37.2 % (30.3-42.9); Hemoglobin 12.5 gm/dl (10.1-14.3); Mean Corpuscular HGB Conc 34 % (30-34); Mean Corpuscular Volume 93 fl (79-97); Platelet Count 329 K/mm3 (140-440); Red Blood Count 3.99 M/mm3 (3.65-5.03); Red Cell Distribution Width 14.4 % (13.2-15.2)
[2021-03-06 06:37] LABS: Blood Urea Nitrogen 10 mg/dL (7-17); Calcium 8.9 mg/dL (8.4-10.2); Hemolysis Index 1
[2021-03-06 06:40] LABS: BUN/Creatinine Ratio 14
[2021-03-06] MEDS ORDERED: REGADENOSON 0.4 MG/5 ML INJ IV ONE (06:58)
--- NOTE | 2021-03-06 10:59 | Electrocardiograph Report ---
[facility] Test Date: 2021-03-04 Test Time: 16:18:36 Pat Name: LIOR FISCHER Department: Room: A466 1 Gender: F Health Information Tech: BRIA : 1955 Requested By: LORNE VILLALOBOS Order Number: [id number] Reading MD: Alfonso Verde Measurements Intervals [place] Rate: 69 P: 48 SC: 163 QRS: -31 QRSD: 93 T: 95 QT: 313 QTc: 335 Interpretive Statements Sinus rhythm non specific st-t No previous ECG available for comparison Electronically Signed On 03-06-2021 10:59:14 EDT by Alfonso Verde
--- NOTE | 2021-03-06 11:04 | Electrocardiograph Report ---
[facility] Test Date: 2021-03-04 Test Time: 23:19:41 Pat Name: LIOR FISCHER Department: Room: A466 1 Gender: F Medic Technician: EPI : 1955 Requested By: JIMMY SCHMIDT Order Number: [id number] Reading MD: Alfonso Verde Measurements Intervals [place] Rate: 57 P: 101 [place]: 197 QRS: -29 QRSD: 102 T: 67 QT: 421 QTc: 410 Interpretive Statements Sinus bradycardia non specific st-t Compared to ECG 03/04/2021 16:18:36 Electronically Signed On 03-06-2021 11:03:58 EDT by Alfonso Verde
[2021-03-06] MEDS: MORPHINE 4 MG/1 ML INJ IV PRN (11:05)
--- NOTE | 2021-03-06 11:07 | Electrocardiograph Report ---
[facility] Test Date: 2021-03-05 Test Time: 10:15:29 Pat Name: LIOR FISCHER Department: Room: A466 1 Gender: F Technology Resource Teacher: CAMERON : 1955 Requested By: JIMMY SCHMIDT Order Number: [id number] Reading MD: Alfonso Verde Measurements Intervals [place] Rate: 61 P: 46 [place]: 183 QRS: -32 QRSD: 106 T: 69 QT: 449 QTc: 452 Interpretive Statements Sinus rhythm non specific st-t Compared to ECG 03/04/2021 23:19:41 Electronically Signed On 03-06-2021 11:06:50 EDT by Alfonso Verde
--- NOTE | 2021-03-06 11:11 | Electrocardiograph Report ---
[facility] Test Date: 2021-03-06 Test Time: 08:06:32 Pat Name: LIOR FISCHER Department: Room: A466 1 Gender: F Insurance Underwriter Sales: JOSE LUIS : 1955 Requested By: JIMMY SCHMIDT Order Number: [id number] Reading MD: Alfonso Verde Measurements Intervals [place] Rate: 60 P: 9 [place]: 183 QRS: -28 QRSD: 107 T: 50 QT: 426 QTc: 426 Interpretive Statements Sinus rhythm non specific st-t Compared to ECG 03/05/2021 10:15:29 Myocardial infarct finding now present Left-axis deviation no longer present Electronically Signed On 03-06-2021 11:11:13 EDT by Alfonso Verde
--- NOTE | 2021-03-06 13:13 | Magnetic Resonance Report ---
MR cervical spine wo con INDICATION / CLINICAL INFORMATION: Cervical Myelopathy. TECHNIQUE: Multisequence, multiplanar images of the cervical spine were obtained. COMPARISON: None available. FINDINGS: ALIGNMENT: Straightening of the cervical spine. VERTEBRAE:No aggressive osseous marrow signal. Vertebral body heights are preserved. SPINAL CORD: No abnormal cord signal [id number] ANALYSIS: C2-C3: Mild broad-based disc protrusion producing mild canal stenosis. C3-C4: Broad-based disc osteophyte complex producing mild canal stenosis. Mild right foraminal narrow ing due to uncovertebral hypertrophy. C4-C5: Broad-based disc osteophyte complex producing moderate canal stenosis. Moderate right foramina l narrowing due to uncovertebral hypertrophy. C5-C6: Broad-based disc osteophyte complex producing mild canal stenosis. Mild bilateral foraminal na rrowing due to uncovertebral hypertrophy. C6-C7: Broad-based disc osteophyte complex producing mild canal stenosis. Moderate left and mild righ t foraminal narrowing due to uncovertebral hypertrophy. C7-T1: Moderate left and mild right foraminal narrowing due to uncovertebral hypertrophy. PARASPINAL SOFT TISSUES: No significant abnormality. ADDITIONAL FINDINGS: None. IMPRESSION: 1. Multilevel degenerative changes as described with multifocal spinal canal and neural foraminal yee rowing. No cord signal abnormality identified. CERVICAL GRADING DEFINITIONS FOR THE PURPOSES OF THIS REPORT: Cervical canal stenosis: No stenosis: No significant attenuation of the CSF spaces Mild stenosis: Attenuation or effacement of the ventral CSF Moderate stenosis: Effacement of both the ventral and dorsal CSF, cord flattening, but so me CSF remaining Severe stenosis: Effacement of all CSF, cord compression Cervical neural foraminal stenosis (Jaimie et al. Japanese J Radiol. 2015 Mar-Apr;16(6):1294-302): No stenosis: No attenuation of the fat in the foramen Mild stenosis: Narrowest point of the foramen is larger than the extraforaminal nerve Moderate stenosis: Narrowest point of the foramen remains greater than 50% of the caliber of the extraforaminal nerve Severe stenosis: Narrowest point of the foramen is less than 50% of the caliber of th e extraforaminal nerve Signer Name: Sreedhar Benito MD Signed: 03/06/2021 1:08 PM Workstation Name: [id number]
--- NOTE | 2021-03-06 13:15 | Magnetic Resonance Report ---
MRI BRAIN WITHOUT CONTRAST INDICATION / CLINICAL INFORMATION: stroke, WEAKNESS, DIFFICULTY WALKING. TECHNIQUE: Multiplanar, multisequence MR images of the brain were obtained. COMPARISON: CTA head and neck on 03/04/2021 FINDINGS: BRAIN / INTRACRANIAL CONTENTS: No acute ischemia, acute hemorrhage, mass effect, midline shift, or hy drocephalus. Mild chronic small vessel ischemic change of the cerebral white matter. Overall normal brain volume for age. CRANIOCERVICAL JUNCTION: No significant abnormality. VASCULAR FLOW-VOIDS: No significant abnormality. ORBITS: No significant abnormality of visualized orbits. SINUSES / MASTOIDS: No significant abnormality of visualized sinuses and mastoid air cells. ADDITIONAL FINDINGS: None. IMPRESSION: 1. No acute infarct or other acute abnormality. 2. No flow-limiting stenosis or large vessel occlusion in the intracranial arteries. Signer Name: Sreedhar Benito MD Signed: 03/06/2021 1:11 PM Workstation Name: [id number]
--- NOTE | 2021-03-06 13:17 | Progress Note ---
Assessment and Plan Echo 03/04/2021-EF 50 to 55%, normal left ventricular systolic function left and right atrium are normal in size normal right ventricular systolic function Patient Lexiscan MPI stress test negative Cardiac status stable. Patient may be discharged from a cardiac perspective Patient has follow up appointment with Dr. Godfrey, [facility], on 03/31/2021 at 10:15am at our [place] location. Patient seen in conjunction with Dr. Verde who agrees with this plan of care. Will sign off - Patient Problems (1) Chest pain Current Visit: Yes Status: Acute Qualifiers: Chest pain type: other chest pain Qualified Code(s): R07.89 - Other chest pain; R07.8 - Other chest pain (2) Elevated d-dimer Current Visit: Yes Status: Acute (3) Hyperlipidemia Current Visit: Yes Status: Acute (4) Hypertension Current Visit: Yes Status: Chronic Qualifiers: Hypertension type: primary hypertension Qualified Code(s): I10 - Essential (primary) hypertension (5) Slipped cervical disc Current Visit: Yes Status: Chronic Subjective Date of service: 03/06/21 Principal diagnosis: chest pain Interval history: Patient for stress test this AM sinus 70s on monitor Objective Vital Signs Temp Pulse Resp BP Pulse Ox 03/06/21 09:34 141/76 03/06/21 09:33 150/99 03/06/21 09:29 142/88 03/06/21 09:28 138/77 03/06/21 08:42 137/67 03/06/21 08:02 98.2 F 59 L 18 128/73 99 03/06/21 05:11 98.4 F 67 18 117/74 99 03/06/21 00:40 97.4 F L 61 18 94/54 96 03/06/21 00:18 98 03/05/21 22:00 65 03/05/21 20:36 97.9 F 75 18 107/66 94 03/05/21 15:41 98.2 F 61 156/83 98 - Physical Examination General: No Apparent Distress HEENT: Positive: EOMI, Normocephaly, Mucus Membranes Moist Neck: Positive: neck supple, trachea midline Cardiac: Positive: Reg Rate and Rhythm Lungs: Positive: Normal Breath Sounds Neuro: Positive: Grossly Intact Abdomen: Positive: Soft, Active Bowel Sounds. Negative: Tender Skin: Positive: Clear. Negative: Rash Musculoskeletal: Normal Range of Motion Extremities: Present: normal. Absent: edema - Labs and Meds CBC 03/06/21 Range/Units 04:39 WBC 5.4 (4.5-11.0) K/mm3 RBC 3.99 (3.65-5.03) M/mm3 Hgb 12.5 (10.1-14.3) gm/dl Hct 37.2 (30.3-42.9) % Plt Count 329 (140-440) K/mm3 Comprehensive Metabolic Panel 03/06/21 Range/Units 04:39 Sodium 140 (137-145) mmol/L Potassium 3.9 (3.6-5.0) mmol/L Chloride 101.4 (98-107) mmol/L Carbon Dioxide 28 (22-30) mmol/L BUN 10 (7-17) mg/dL Creatinine 0.7 (0.6-1.2) mg/dL Glucose 101 H (65-100) mg/dL Calcium 8.9 (8.4-10.2) mg/dL - Imaging and Cardiology EKG: image reviewed Echo: report reviewed (Echo 03/04/2021-EF 50 to 55%, normal left ventricular systolic function left and right atrium are normal in size normal right ventricular systolic function) - Telemetry EKG Rhythm: Sinus Rhythm - EKG Sinus rhythms and dysrhythmias: sinus rhythm QRS axis and voltage: left axis deviation
[2021-03-06] MEDS: PANTOPRAZOLE 40 MG TAB PO SCH (13:30)
[2021-03-06] MEDS: LOSARTAN 50 MG TAB PO SCH (13:30)
[2021-03-06] MEDS: hydroCHLOROthiazide 12.5 MG CAP PO SCH (13:30)
[2021-03-06] MEDS: ASPIRIN EC 325 MG TAB PO SCH (13:30)
[2021-03-06] MEDS: HEPARIN 5,000 UNIT/1 ML VIAL SUB-Q SCH (13:31)
--- NOTE | 2021-03-06 14:35 | Vascular Lab Report ---
DUPLEX DOPPLER ULTRASOUND CAROTID, BILATERAL INDICATION / CLINICAL INFORMATION: TIA, suspect less than 50% left ICA stenosis. COMPARISON: CTA neck 03/04/2021. FINDINGS: RIGHT CAROTID: Mild calcified atherosclerotic plaque. - PLAQUE ESTIMATE (%): < 50% - CCA velocity: 72 cm/sec. - ICA peak systolic velocity: 103 cm/sec. - ICA/CCA PSV Ratio: Less than 2. Right Vertebral Artery: Antegrade flow. LEFT CAROTID: Mild calcified atherosclerotic plaque. - PLAQUE ESTIMATE (%): < 50% - CCA velocity: 87 cm/sec. - ICA peak systolic velocity: 86 cm/sec. - ICA/CCA PSV Ratio: Less than 2. Left Vertebral Artery: Antegrade flow. IMPRESSION: 1. Right Internal Carotid Artery: Less than 50% diameter stenosis. 2. Left Internal Carotid Artery: Less than 50% diameter stenosis. Velocity criteria are extrapolated from diameter data as defined by the Society of Radiologists in Ul trasound Consensus Conference, Radiology 2003; 229;340-346. NO STENOSIS (NORMAL) - Plaque = none; ICA PSV < 125 cm/sec; ICA/CCA PSV Ratio < 2.0 <50% STENOSIS - Plaque < 50%; ICA PSV < 125 cm/sec; ICA/CCA PSV Ratio < 2.0 50-69% STENOSIS - Plaque > 50%; ICA PSV = 125-230 cm/sec; ICA/CCA PSV Ratio = 2.0-4.0 >70% BUT <100% STENOSIS - Plaque > 50%; ICA PSV > 230 cm/sec; ICA/CCA PSV Ratio > 4.0 NEAR OCCLUSION - Plaque = visible lumen; ICA PSV = high/low/none; ICA/CCA PSV Ratio = variable TOTAL OCCLUSION - Plaque = no lumen; ICA PSV = none; ICA/CCA PSV Ratio = N/A Scribed by: Inessa Izquierdo RDMS, RVT Scribed: 03/06/2021 1:19 PM I have reviewed the images, agree with this report, and edited this report as needed. Signer Name: Geovani Alan DO Signed: 03/06/2021 2:30 PM Workstation Name: [id number]
--- NOTE | 2021-03-06 15:55 | Discharge Summary ---
Providers - Providers Date of Admission: 03/05/21 00:31 Date of discharge: 03/06/21 Attending physician: GINETTE DIEZ 03/04/21 Consult to Cardiac Rehabilitation [CONS] Routine Reason For Exam: Phase I Consult to Physician [CONS] Routine Comment: Consulting Provider: CRYSTAL GRAY Physician Instructions: Reason For Exam: CVA 03/04/21 22:16 Consult to Physician [CONS] Stat Comment: Consulting Provider: RENALDO GIVENS Physician Instructions: Reason For Exam: left ICA stenosis, CP, TIA symptoms 03/04/21 23:13 Consult to Cardiology [CONS] Routine Consulting Provider: ADAIR PHILLIPS Reason For Exam: cp Occupational Therapy Evaluate and Treat [CONS] Routine Comment: Reason For Exam: Neuro deficits Physical Therapy Evaluation and Treat [CONS] Routine Comment: Reason For Exam: Neuro deficits Primary care physician: FRANDY BECKER Hospitalization Condition: Stable Hospital course: Patient is 65 yo with hyperlipidemia and herniated cervical disc was brought to the emergency room because of bilateral chest pain and shortness of breathfor 1 week. She states that she went to Dr. Mckenzie her pulmonologist1 week earlier and had a chest x-ray which she states did not show any pneumonia and he referred her to a rd project manager. Patient states also for the last couple of days she has had some slurring of her speech and numbness/tingling sensation to her left arm and left leg. States that she has a history of cervical radiculopathy and has had tingling in her left arm before but states the speech slurring and left leg tingling is new. Patient was seen by Tele neurology. Imaging revealed 50% stenosis Left ICA therefore Vasc Surg consulted. She was seen by Dr. Oconnell. he recommended medical management, no indication for surgery. Also patient evaluated by Cardiology, stress test done was negative. Multiple radiology investigations done. MRI Brain negative for stroke. Patient subsequently discharged home on 03/06/21. She was asked to follow with Neurosurgeon, Dr Alex, for DJD Cervical spine. Chest pain Due to GERD (1) Acute coronary syndrome Current Visit: Yes Status: Acute Plan to address problem: Admit the patient to the medical floor. Aspirin 325 mg p.o. daily. Lipitor 80 mg p.o. daily. We will do the serial cardiac enzymes. We will also do echocardiogram and consult cardiology for evaluation (2) Numbness in left leg Current Visit: Yes Status: Acute Plan to address problem: Aspirin 325 mg p.o. daily. Lipitor 80 mg p.o. daily. Will consult PT OT any speech evaluation. We will do a MRI of the brain and MRA of the brain and neck with and without contrast. Echocardiogram and neurology consult (3) Slurred speech Current Visit: Yes Status: Acute Plan to address problem: Aspirin 325 mg p.o. daily. Lipitor 80 mg p.o. daily. Will consult PT OT any speech evaluation. We will do a MRI of the brain and MRA of the brain and neck with and without contrast. Echocardiogram and neurology consult (4) Hyperlipidemia Current Visit: Yes Status: Acute Plan to address problem: Lipitor 80 mg p.o. daily. Which recheck the lipid panel in the morning. We will continue the home medication (5) SOB (shortness of breath) Current Visit: Yes Status: Acute Plan to address problem: Oxygen via nasal cannula 3 to per minute DuoNeb by nebulizer every 4 hours. Albuterol via nebulizer every 4 hours as needed (6) Stenosis of carotid artery Current Visit: Yes Status: Acute Qualifiers: Laterality: left Qualified Code(s): I65.22 - Occlusion and stenosis of left carotid artery Plan to address problem: Aspirin 325 mg p.o. daily Lipitor 80 mg p.o. daily we will consult vascular surgeon for evaluation and treatment (7) DVT prophylaxis Current Visit: Yes Status: Acute Plan to address problem: Heparin 5000 units subcu every 12 hours for DVT prophylaxis. Protonix 40 mg p.o. daily for GI prophylaxis. Patient is a full code 03/05/21 Patient presents with chest pain, slurred speech, tingling and numbness. Cardiology and Neurology consulted. For MRI Brain. 03/06/21 Patient stable to go home. Disposition: 01 HOME / SELF CARE / HOMELESS Final Discharge Diagnosis (Prints w/discharge instructions): 1.Chest pain. 2.Hypertension. 3.Degenerative joint disease, cervical spine - Discharge Diagnoses (1) Chest pain Status: Acute Qualifiers: Chest pain type: other chest pain Qualified Code(s): R07.89 - Other chest pain; R07.8 - Other chest pain Comment: Due to GERD (2) Hypertension Status: Chronic Qualifiers: Hypertension type: primary hypertension Qualified Code(s): I10 - Essential (primary) hypertension (3) Hyperlipidemia Status: Acute (4) GERD (gastroesophageal reflux disease) Status: Acute (5) DJD (degenerative joint disease) of cervical spine Status: Acute Core Measure Documentation - Palliative Care Palliative Care/ Comfort Measures: Not Applicable - Core Measures Any of the following diagnoses?: none Exam - Constitutional Vitals: Temp Pulse Resp BP Pulse Ox 98.2 F 59 L 18 141/76 98 03/06/21 08:02 03/06/21 08:02 03/06/21 10:00 03/06/21 09:34 03/06/21 10:00 Plan Activity: no restrictions Diet: low fat, low cholesterol, low salt Special Instructions: other Plan of Treatment: 1.Follow up with PCP in [address] Oconnell, [facility] Surgeon in 1-2 weeks 3.Follow up with Neurologist in 1 week 4.Follow up with Dr. Godfrey, cardiology on 03/31/21 5.Follow up with Dr. Tucker Alex, Neurosurgeon for degenerative joint disease of cervical spine Follow up with: FRANDY BECKER MD [Primary Care Provider] - 3-5 Days Prescriptions: Aspirin EC [Ecotrin] 325 mg PO QDAY #30 tablet AtorvaSTATin [Lipitor] 40 mg PO QHS #30 tab Famotidine [Pepcid] 20 mg PO BID #60 tablet
--- NOTE | 2021-03-06 16:20 | Event Note ---
Date: 03/06/21 CT angiogram demonstrated no evidence of aortic dissection. Ultrasound demonstrated less than 50% stenosis of the bilateral internal carotid arteries, which I suspected based on CT scan. No plans for surgical treatment. Recommend optimal medical therapy for stroke. Can follow-up in 2 to 4 weeks from vascular standpoint.
[2021-03-06 18:47] VITALS: BP 127/65
--- NOTE | 2021-03-07 08:13 | Nuclear Medicine Report ---
APPROVED REPORT Exam: Nuclear Stress Test Indication: Chest pain Patient Location: [address] [place] [address] Room #: [id number] Ht: 5 ft 5 in Wt: 184 lbs BSA: 1.91 m2 HR: 56 bpmBP: 137/67 mmHgBMI: 30.61 Rhythm: Sinus Bradycardia with sinus arrhythmia Stress Test Details Stress Test: Pharmacologic stress testing performed using 0.4 mg of regadenoson per 5 mL given IV over 10 seconds. Reason for pharmacologic stress test: physical limitation. HR Resting HR: 56 bpm Max HR Achieved: 107 bpm Max Heart Rate (APMHR): 156.256975 bpm Target HR (85% APMHR): 132.620024 bpm % of APMHR: 68.59 Recovery HR: 92 bpm BP Resting BP: 137/67 mmHg Max BP: 150/99 mmHg ECG Resting ECG: Sinus Bradycardia withsinus arrhythmia Clinical Reason for Termination: Completed protocol Stress Symptoms: None NM EXAM: Myocardial Perfusion REST/STRESS Imaging Protocol: Rest Tc-99m/Stress Tc-99m 1 day Resting Data Rest SPECT myocardial perfusion imaging was performed in supine position 45 minutes following the intravenous injection of 10 mCi of Tc-99m Myoview. Time of rest injection: 0655 Pharmacologic Stress Pharmacologic stress test was performed by injecting Regadenoson 0.4 mg IV push followed by the intravenous injection of 28 mCi of Tc-99m Myoview. Time of stress injection: 0928 Gated Stress SPECT was performed 30 minutes after stress injection. The images were gated to evaluate regional wall motion and calculate left ventricular ejection fraction. Study Quality Study: excellent Lung Uptake: Normal Study Data TID = 1.11. Perfusion Wall Motion The rest and stress images show normal left ventricular wall motion. Nuclear Conclusion ECG Findings: negative for ischemia Clinical Findings: negative for ischemia Nuclear Findings: negative for ischemia Exercise Capacity: not assessed Left Ventricular Function: normal Normal study. No scintigraphic evidence for myocardial ischemia or scar. Normal left ventricular size and function with no regional wall motion abnormalities.
== END 2021-03-06 17:00 | disposition home or self-care (01) ==
LOC: ED 16:08 → 4A 03-05 00:31
PROVIDERS: ADMIT Hospitalist; ATTEND Internal Medicine
DX: I24.9 Acute ischemic heart disease, unspecified (principal); I65.22 Occlusion and stenosis of left carotid artery; I10 Essential (primary) hypertension; E78.5 Hyperlipidemia, unspecified; M50.23 Other cervical disc displacement, cervicothoracic region; F41.9 Anxiety disorder, unspecified; R06.02 Shortness of breath; R47.81 Slurred speech; R20.0 Anesthesia of skin; R77.8 Other specified abnormalities of plasma proteins; R29.703 NIHSS score 3; Z79.899 Other long term (current) drug therapy; Z98.890 Other specified postprocedural states; Z79.82 Long term (current) use of aspirin; Z90.710 Acquired absence of both cervix and uterus
CPT/HCPCS: 36415; 70450; 70496; 70498; 70544; 70551; 71046; 71275; 72141; 74174; 78452; 78580; 80048; 80053; 80061; 81001; 84443; 84484; 85025; 85027; 85379; 85610; 85730; 93005; 93017; 93306; 93880; 96361; 96372; 96374; 96376; 97163; 97165; 99285; A9270; A9502; A9540; G0378; J1644; J2270; J2785; J7030; Q9967; 85007

== ENCOUNTER 2021-06-06 10:51 | Emergency (ER) | payer BC ==
[2021-06-06 10:53] VITALS: BP 126/80
== END 2021-06-06 14:44 ==
LOC: ED 10:51
DX: R51.9 Headache, unspecified (principal); Z53.21 Procedure and treatment not carried out due to patient leaving prior to being seen by health care provider